=== PATIENT | female | born 1935 | race Caucasian/White ===

== ENCOUNTER 2021-07-07 11:35 | Day surgery (SDC) | payer OTHER ==
[2021-07-07] MEDS ORDERED: CEFAZOLIN/NS 1gm 1 GM/50 ML BAG ONE (11:44)
[2021-07-07] MEDS ORDERED: Ringers Lactate 1,000 ML IV ONE (11:44)
[2021-07-07] MEDS ORDERED: LIDOCAINE 1% MPF 2 ML AMPULE ONE ×2 (13:32→16:07)
[2021-07-07] MEDS ORDERED: MIDAZOLAM HCL 2 MG/2 ML INJ ONE (13:32)
[2021-07-07] MEDS ORDERED: propofoL 200 MG/20 ML VIAL IV ONE ×2 (13:32→16:03)
[2021-07-07] MEDS ORDERED: FENTANYL CITR 100 MCG/2 ML ONE (13:32)
[2021-07-07] MEDS ORDERED: ROCURONIUM 50 MG/5 ML VIAL IV ONE (13:38)
[2021-07-07] MEDS: LIDOCAINE 1% W/EPI 1:100,000 MDV 20 ML VIAL ONE ×2 (14:17→14:40)
[2021-07-07] MEDS ORDERED: KETOROLAC 30 MG/ML INJ ONE (14:39)
[2021-07-07] MEDS ORDERED: ONDANSETRON 4 MG/2 ML VIAL ONE (14:49)
--- NOTE | 2021-07-07 14:56 | P.BOP ---
Preoperative diagnosis: labial adhesions, clitoral rojas adhesions Postoperative diagnosis: same Primary procedure: Lysis of labial adhesions and clitoral rojas adhesions Secondary procedure: bilateral labioplasty Philosophy Faculty: NONE,NONE Estimated blood loss: min Specimen: none Findings: labia majora, minora, clitoral rojas adhesions Anesthesia: MAC Complications: None Transferred to: Recovery Room Condition: Good
[2021-07-07 16:09] VITALS: BP 137/67; TEMP 98.1; O2SAT 100
[2021-07-07] MEDS ORDERED: HOME MED 1 EA UNK (Estradiol [Estradiol] 42.5 GM Cream.Appl) TOP SCH (17:00)
[2021-07-07] MEDS ORDERED: HOME MED 1 EA UNK (Acetaminophen [Tylenol Arthritis] 650 MG Tablet.Er) PO SCH (21:00)
[2021-07-07] MEDS ORDERED: AMLODIPINE 5 MG TAB PO SCH (21:00)
== END 2021-07-07 15:40 | disposition home or self-care (01) ==
LOC: OR 11:35
PROVIDERS: ATTEND Obstetrics & Gynecology
PROC: 0UBMXZZ Excision of Vulva, External Approach (ICD-10-PCS; 2021-07-07)
PROC: 0UNMXZZ Release Vulva, External Approach (ICD-10-PCS; principal; 2021-07-07 12:30)
DX: Q52.5 Fusion of labia (principal); N90.89 Other specified noninflammatory disorders of vulva and perineum; Z20.822 Contact with and (suspected) exposure to COVID-19
CPT/HCPCS: 56441; 56620; U0003; J2704 ×2; J0690; J7120; J2405; J2250; J3010

== ENCOUNTER 2024-02-26 09:26 | Emergency (ER) | payer OTHER ==
--- OUTSIDE RECORDS SUMMARY | 2024-02-26 09:28 | XMS REPORT | Continuity of Care Document ---
Author Name Unknown Address [address] [place] [address] [address] thconnect Address 1200 [facility] 1 495 [place] [address] Care Team Providers Care Academic Coach Name Role Phone [email or web address]_S Attending Clinician Unavaila ble [email or web address]_Kadiyala_S Admitting Clinician Unavaila ble Payers Payer Name Policy Type Policy Number Effective Date Expirati on Date Source MEDICARE [place]: [employer] [id number] 2000 00:00:00 MOHAN PARKER REMI (MEDICARE SUPPLEMENT) [id number] 2019 00:00:00 Encounters Start Date/Time End Date/Time Encounter Type Admission Type Attending Clinicians Care Facility Care Department Encounter ID Source 2021-12-29 15:09:04 Outpatient [facility] [id number] [facility] 2021-12-26 09:07:02 Outpatient [facility] [id number] [facility] 2021-12-25 14:19:02 Outpatient [facility] [id number] [facility] 2023-05-19 00:00:00 2023-05-19 00:00:00 Outpatient GC_GCBZW_Ka diyala_S PRIV PRIV [id number] [facility] 2023-05-18 00:00:00 2023-05-18 00:00:00 Outpatient [email or web address] diyala_S PRIV PRIV [id number] [facility]
--- NOTE | 2024-02-26 10:33 | RAD REPORT ---
EXAM DESCRIPTION: RAD - Hip Right 2 View - 02/26/2024 10:24 am CLINICAL HISTORY: PAIN COMPARISON: Head C Spine Mpr Wo Con dated 02/26/2024 FINDINGS: Diffuse osteopenia is seen. There is high suspicion of a impaction fracture present at the junction of the right femoral head and neck. No dislocation.
--- NOTE | 2024-02-26 10:34 | RAD REPORT ---
EXAM DESCRIPTION: RAD - Knee Right 3 View - 02/26/2024 10:24 am CLINICAL HISTORY: PAIN COMPARISON: No comparisons FINDINGS: Diffuse osteopenia is seen. Mild tricompartmental osteoarthritis. No fracture, dislocation seen. Small joint effusion.
--- NOTE | 2024-02-26 10:39 | RAD REPORT ---
EXAM DESCRIPTION: RAD - Elbow Right 3 View - 02/26/2024 10:24 am CLINICAL HISTORY: PAIN COMPARISON: No comparisons FINDINGS: Diffuse osteopenia is seen. The proximal aspect of the radius appears dislocated and is in abnormal position. No gross fracture.
--- NOTE | 2024-02-26 10:48 | RAD REPORT ---
EXAM DESCRIPTION: CT - CTHCSPWOC - 02/26/2024 10:24 am CLINICAL HISTORY: Trauma, head and neck injury. TRAUMA COMPARISON: No comparisons TECHNIQUE: Axial 5 mm thick images of the head were obtained. Axial 2 mm thick images of the cervical spine were obtained with sagittal and coronal reconstruction images generated and reviewed. All CT scans are performed using dose optimization technique as appropriate and may include automated exposure control or mA/KV adjustment according to patient size. FINDINGS: CT HEAD WITHOUT CONTRAST: No acute hemorrhage, hydrocephalus or extra-axial collection is identified.Moderate generalized brain atrophy is present with moderate periventricular and deep white matter chronic microvascular ischemi c changes.Large area of gliosis is seen involving the posterior fossa with postsurgical changes prese nt. The paranasal sinuses and mastoids are clear. CT CERVICAL SPINE WITHOUT CONTRAST: No fracture or subluxation.Mild mid and lower cervical degenerative changes.No prevertebral soft tiss ues swelling is identified. IMPRESSION: No acute intracranial or cervical spine findings.
--- NOTE | 2024-02-26 12:02 | RAD REPORT ---
EXAM DESCRIPTION: CT - Pelvis Wo Cont - 02/26/2024 11:42 am CLINICAL HISTORY: TRAUMA COMPARISON: No comparisons TECHNIQUE: All CT scans are performed using dose optimization technique as appropriate and may inclu de automated exposure control or mA/KV adjustment according to patient size. FINDINGS: Advanced diffuse osteopenia. There is a mildly impacted fracture seen of the proximal right femur involving the right femoral head / neck junction as well as the subcapital region. No dislocation seen. Left hip appears intact. Sacroiliac joints appear intact. IMPRESSION: Fracture of the proximal right femur as detailed.
--- NOTE | 2024-02-26 13:07 | ER ---
Nurse's Notes [facility] Name: Eryn Miguel Age: 88 yrs Sex: Female : 1935 Arrival Date: 02/26/2024 Time: 09:26 Bed 17 Private MD: Diagnosis: Abrasion of scalp;Mechanical fall;Right femoral neck fracture Presentation: 02/25 09:39 Chief complaint: EMS states: Lost her balance while taking out the trash and fell on rs5 her right side. Lac noted to right side of head, no active bleeding noted. Complains of pain to right leg and right side of head. Pt does not remember fall. Daughter reports positive LOC, is not on blood thinners. Coronavirus screen: At this time, the client does not indicate any symptoms associated with coronavirus-19. Ebola Screen: No symptoms or risks identified at this time. Initial Sepsis Screen: Does the patient meet any 2 criteria? No. Patient's initial sepsis screen is negative. Does the patient have a suspected source of infection? No. Patient's initial sepsis screen is negative. Risk Assessment: Do you want to hurt yourself or someone else? Patient reports no desire to harm self or others. 09:39 Method Of Arrival: EMS: [facility] rs5 09:41 Onset of symptoms was February 26, 2024. Care prior to arrival: Medication(s) given: 25 rs5 mcg fentanyl IV initiated. 20 GA, in the left forearm. 09:41 Acuity: B[place] 3 rs5 Historical: - Allergies: 09:42 No Known Allergies; rs5 - PMHx: 09:42 Hypertensive disorder; Arthritis; Osteoporosis; rs5 - PSHx: 09:42 left knee surgery; rs5 - Immunization history:: Adult Immunizations up to date. - Infectious Disease History:: Denies. - Social history:: Smoking status: Patient denies any tobacco usage or history of. - Family history:: not pertinent. Screenin:34 [facility] ED Fall Risk Assessment (Adult) History of falling in the last 3 months, rs5 including since admission Yes- single mechanical fall (1 pt) Confusion or Disorientation No (0 pts) Intoxicated or Sedated No (0 pts) Impaired Gait Yes (1 pt) Mobility Assist Device Used Yes (1 pt) Altered Elimination No (0 pt) Score/Fall Risk Level 3 or more points = High Risk Oriented to surroundings, Maintained a safe environment. Abuse screen: Denies threats or abuse. Nutritional screening: No deficits noted. Tuberculosis screening: No symptoms or risk factors identified. Assessment: 09:34 General: Appears in no apparent distress. uncomfortable, Behavior is calm, cooperative. rs5 Pain: Complains of pain in right upper leg, and right side of head Pain currently is 3 out of 10 on a pain scale. Quality of pain is described as aching, Is continuous. Neuro: Level of Consciousness is awake, alert, obeys commands, Oriented to person, place, time, situation. Cardiovascular: Patient's skin is warm and dry. Respiratory: Airway is patent Respiratory effort is even, unlabored, Respiratory pattern is regular, symmetrical. GI: Abdomen is round non-distended, Abd is soft and non tender X 4 quads. : No signs and/or symptoms were reported regarding the genitourinary system. EENT: No signs and/or symptoms were reported regarding the EENT system. Derm: Skin is intact, Skin is pink, warm \T\ dry. 0.5 inch laceration noted to right side of head, no active bleeding noted. Pt denies dizziness or blurred vision at this moment. Musculoskeletal: Range of motion: limited in right leg. 10:28 Reassessment: Patient and/or family updated on plan of care and expected duration. Pain rs5 level reassessed. Patient is alert, oriented x 3, equal unlabored respirations, skin warm/dry/pink. 10:47 Reassessment: Patient appears in no apparent distress at this time. Patient and/or kj2 family updated on plan of care and expected duration. Pain level reassessed. Patient is alert, oriented x 3, equal unlabored respirations, skin warm/dry/pink. Patient states symptoms have improved. 10:48 Reassessment: RN cleansed laceration and applied 2x2 with bandaid. kj2 13:26 General: Report given to ADELA Kaiser at [facility] in the [facility]. . me1 Vital Signs: 09:39 BP 151 / 69; Pulse 70; Resp 17; Temp 97.8(O); Pulse Ox 98% on R/A; rs5 10:42 BP 151 / 63; Pulse 73; Resp 18; Temp 98.1(O); Pulse Ox 98% on R/A; kj2 12:02 BP 141 / 60; Resp 18; Pulse Ox 96% ; kj2 13:00 BP 130 / 65; Pulse 77; Resp 16; Pulse Ox 97% on R/A; me1 13:07 Weight 39.01 kg (M); aa5 ED Course: 09:33 Patient arrived in ED. aa5 09:33 Carlito Cooley MD is Attending Physician. rt 09:34 Patient has correct armband on for positive identification. Placed in gown. Bed in low rs5 position. Call light in reach. Side rails up X2. 09:34 No provider procedures requiring assistance completed. rs5 09:39 Lex Sampson, ADELA is Primary Nurse. rs5 09:42 Triage completed. rs5 10:25 Knee Right 3 View XRAY In Process Unspecified. EDMS 10:25 Hip Right 2 View XRAY In Process Unspecified. EDMS 10:25 Elbow Right 3 View XRAY In Process Unspecified. EDMS 10:26 CT Head C Spine In Process Unspecified. EDMS 10:44 Report received from ADELA Burnett. kj2 10:48 Provided Education on: call light, fall precautions. kj2 11:44 CT Pelvis wo Cont In Process Unspecified. EDMS 12:00 Maintain EMS IV. Dressing intact. Good blood return noted. Site clean \T\ dry. Gauge \T\ me 1 site: 20g LFA. 12:01 bedpan to urinate. kj2 12:10 attempted to initiate a transfer with the [facility] [place]/ placed on automatic eb hold for 50 minutes. 13:02 initiated a transfer with Al[facility] from the [facility] [place]. eb 13:09 administrative approval given by Mell Zhang Rn/ patient has been accepted to [facility] ED/ Dr. Jose M Niño has accepted the patient in transfer without consultation with Dr. Cooley/ report to be called to [phone]. 13:17 Report given to ADELA Cortes. kj2 14:05 Patient transferred, IV remains in place. rs5 Administered Medications: 13:14 Drug: morphine IVP or IV 2 mg IVP once over 4 mins Route: IVP; Infused Over: 4 mins; me1 Site: left forearm; 13:22 Follow up: Response: No adverse reaction; Pain is decreased me1 Medication: 11:12 VIS not applicable for this client. kj2 Outcome: 13:06 ER care complete, transfer ordered by . rt 14:05 Transferred rs5 14:05 Condition: stable rs5 14:05 Instructed on the need for transfer, Demonstrated understanding of instructions, 14:09 Patient left the ED. eb Signatures: Dispatcher [employer] EDAngelia Carlton RN RN aa5 Kate Sanderson Ryan, MD MD rt Lex Sampson RN RN rs5 Sophia Alford RN RN me1 Karla Gaines RN RN kj2
--- NOTE | 2024-02-26 13:07 | EDPHYS ---
Physician Documentation [facility] Name: Eryn Miguel Age: 88 yrs Sex: Female : 1935 Arrival Date: 02/26/2024 Time: 09:26 Bed 17 Private MD: ED Physician Carlito Cooley HPI: 02/25 10:03 This 88 yrs old Unknown Female presents to ER via EMS with complaints of Fall Injury. rt 10:03 Patient presents to the ED with mechanical fall. Patient did hit her head with loss rt consciousness. She reports of pain to her right leg mostly at her right knee, some to her right hip, states that she has chronic numbness and deformity from to the right arm, states that she has some pain to the elbow but denies other pain. Symptoms are moderate in severity, no other aggravating or alleviating factors.. Historical: - Allergies: 09:42 No Known Allergies; rs5 - PMHx: 09:42 Hypertensive disorder; Arthritis; Osteoporosis; rs5 - PSHx: 09:42 left knee surgery; rs5 - Immunization history:: Adult Immunizations up to date. - Infectious Disease History:: Denies. - Social history:: Smoking status: Patient denies any tobacco usage or history of. - Family history:: not pertinent. ROS: 10:03 Constitutional: Negative for fever, chills, and weight loss, Cardiovascular: Negative rt for chest pain, palpitations, and edema, Respiratory: Negative for shortness of breath, cough, wheezing, and pleuritic chest pain, Abdomen/GI: Negative for abdominal pain, nausea, vomiting, diarrhea, and constipation, 10:03 MS/extremity: Positive for pain, Negative for deformity, 10:03 Skin: Positive for abrasion(s), 10:03 Neuro: Positive for headache, loss of consciousness, Exam: 10:03 Constitutional: This is a well developed, well nourished patient who is awake, alert, rt and in no acute distress. Chest/axilla: Normal chest wall appearance and motion. Nontender with no deformity. No lesions are appreciated. Cardiovascular: Regular rate and rhythm with a normal S1 and S2. No gallops, murmurs, or rubs. Normal PMI, no JVD. No pulse deficits. Respiratory: Lungs have equal breath sounds bilaterally, clear to auscultation and percussion. No rales, rhonchi or wheezes noted. No increased work of breathing, no retractions or nasal flaring. Abdomen/GI: Soft, non-tender, with normal bowel sounds. No distension or tympany. No guarding or rebound. No evidence of tenderness throughout. 10:03 Head/face: Abrasion with minimal ooze to the right mormon, right parietal region, contusions noted, no deformity. 10:03 Musculoskeletal/extremity: Chronic appearing deformity to the right arm, minimal tenderness to the elbow, full range of motion, no contusions noted, mild tenderness of the right knee without swelling, deformity, mild tenderness of right hip. Vital Signs: 09:39 BP 151 / 69; Pulse 70; Resp 17; Temp 97.8(O); Pulse Ox 98% on R/A; rs5 10:42 BP 151 / 63; Pulse 73; Resp 18; Temp 98.1(O); Pulse Ox 98% on R/A; kj2 12:02 BP 141 / 60; Resp 18; Pulse Ox 96% ; kj2 13:00 BP 130 / 65; Pulse 77; Resp 16; Pulse Ox 97% on R/A; me1 13:07 Weight 39.01 kg (M); aa5 Laceration: 14:08 Wound Repair of 0.5cm ( 0.2in ) subcutaneous laceration to right mormon. Linear rt shaped.. Distal neuro/vascular/tendon intact. Wound prep: Simple cleansing by nurse. Skin closed with 1-0 Dermabond using Dermabond. Patient tolerated well. MDM: 09:33 Patient medically screened. rt 13:07 Differential diagnosis: Fracture, closed head injury. Data reviewed: vital signs, rt nurses notes, radiologic studies. Consideration of Admission/Observation Patient requires transfer for Ortho. Management of patient was discussed with the following: Primary Care Provider: Discussed with patient's PCP. I considered the following discharge prescriptions or medication management in the emergency department Medications were administered in the Emergency Department. See MAR. Independent interpretation of the following test(s) in the Emergency Department X-Ray: My interpretation is Femoral neck fracture seen on interpretation of x-ray images. Test considered but Not performed: EKG: Denies syncopal symptoms, EKG, blood work not indicated. Care significantly affected by the following chronic conditions: Hypertension. Counseling: I had a detailed discussion with the patient and/or guardian regarding the historical points, exam findings, and any diagnostic results supporting the discharge/admit diagnosis, radiology results, the need to transfer to another facility. Response to treatment: There is no appreciated change of the patient's symptoms at this time. 02/25 09:38 Order name: Knee Right 3 View XRAY; Complete Time: 10:49 rt 02/25 09:38 Order name: Hip Right 2 View XRAY; Complete Time: 10:49 rt 02/25 09:38 Order name: Elbow Right 3 View XRAY; Complete Time: 10:49 rt 02/25 09:38 Order name: CT Head C Spine; Complete Time: 10:49 rt 02/25 11:17 Order name: CT Pelvis wo Cont; Complete Time: 12:02 rt 02/25 13:25 Order name: Dermabond; Complete Time: 13:36 rt Administered Medications: 13:14 Drug: morphine IVP or IV 2 mg IVP once over 4 mins Route: IVP; Infused Over: 4 mins; me1 Site: left forearm; 13:22 Follow up: Response: No adverse reaction; Pain is decreased me1 Disposition Summary: 02/26/24 13:06 Transfer Ordered Notes: Transfer Location: [facility] rt Reason: Specialty rt Condition: Stable rt Problem: new rt Symptoms: are unchanged rt Accepting Physician: (02/26/24 14:09) hilario Diagnosis - Abrasion of scalp rt - Mechanical fall rt - Right femoral neck fracture rt Forms: - Medication Reconciliation Form rt - SBAR form rt Signatures: Dispatcher [employer] Kate Mccracken Ryan, MD MD rt Lex Sampson, RN RN rs5 Sophia Alford RN RN me1 Corrections: (The following items were deleted from the chart) 14: 13:06 Dr. rt rich
[2024-02-26] MEDS ORDERED: MORPHINE 2 MG/ML SYR ONE (13:10)
[2024-02-26] MEDS ORDERED: DERMABOND SKIN ADHESIVE TOP ONE (13:35)
[2024-02-26 14:23] VITALS: TEMP 98.1
[2024-02-26 14:25] VITALS: BP 130/65; O2SAT 97
== END 2024-02-26 14:09 | disposition short-term general hospital (02) ==
LOC: ER 09:26
PROC: 0HQ0XZZ Repair Scalp Skin, External Approach (ICD-10-PCS; principal; 2024-02-26)
DX: S01.01XA Laceration without foreign body of scalp, initial encounter (principal); S72.001A Fracture of unspecified part of neck of right femur, initial encounter for closed fracture; W18.30XA Fall on same level, unspecified, initial encounter
CPT/HCPCS: 12001; 70450; 72125; 72192; 73502; 73080; 73562; 96374; 99285; J2270

== ENCOUNTER 2024-03-03 12:50 | Inpatient (IN) | payer OTHER ==
--- OUTSIDE RECORDS SUMMARY | 2024-03-03 22:05 | XMS REPORT | Continuity of Care Document ---
Author Name Unknown Address [address] [facility] [facility] [place] [id number] [facility] thconnect Address [address] 1 [address] [place] [address] Care Team Providers Care Primary Montessori Teacher Name Role Phone RAMONITA FORMAN Attending Clinician Unava ilable [email or web address]_Kadiyala_S Attending Clinician Unavaila ble RAMONITA FORMAN Admitting Clinician Unava ilable [email or web address]_Kadiyala_S Admitting Clinician Unavaila ble Payers Payer Name Policy Type Policy Number Effective Date Expirati on Date Source MEDICARE [place]: [employer] [id number] 2000 00:00:00 MOHAN KEITH KHALIL (MEDICARE SUPPLEMENT) [id number] 2019 00:00:00 Encounters Start Date/Time End Date/Time Encounter Type Admission Type Attending Clinicians Care Facility Care Department Encounter ID Source 2021-12-29 15:09:04 Outpatient [facility] [id number] [facility] 2021-12-26 09:07:02 Outpatient [facility] [id number] [facility] 2021-12-25 14:19:02 Outpatient [facility] [id number] [facility] 2024-02-26 19:31:00 2024-03-03 20:45:00 Inpatient [facility]DON[facility] [id number] [address] [place] [address] 2023-05-19 00:00:00 2023-05-19 00:00:00 Outpatient GC_GCBZW_Ka diyala_S PRIV PRIV [id number] [facility] 2023-05-18 00:00:00 2023-05-18 00:00:00 Outpatient [email or web address]_Ka diyala_S PRIV PRIV [id number] [facility]
[2024-03-03] MEDS: HEPARIN 5000 UNIT/ML 1 ML VIAL SQ ONE (23:00)
[2024-03-03 23:46] VITALS: BMI 16.0
[2024-03-04 06:23] LABS: Specific Gravity 1.008 (1.005-1.030); Sqamous Epithelial None Seen /HPF (None Seen); Urine Bacteria None Seen /HPF (<20); Urine Bilirubin NEGATIVE (Negative); Urine Blood Negative (Negative); Urine Clarity Extremely Turbid (Clear); Urine Color Colorless (Yellow); Urine Culture Reflex Order NOT NEEDED; Urine Glucose NEGATIVE (Negative); Urine Ketones NEGATIVE (Negative); Urine Micro Reflex YN NO BILL MICROSCOPIC; Urine Nitrite NEGATIVE (Negative); Urine Protein NEGATIVE (Negative); Urine RBC None Seen /HPF (None Seen); Urine Urobilinogen Normal (Normal); Urine WBC None Seen /HPF (<5)
[2024-03-04 07:16] LABS: Absolute Eosinophils 0.1 K/uL (0-0.5); Absolute Monocytes 0.8 K/uL (0.1-1.3); Absolute Neutrophil 3.7 K/uL (1.8-8.0); Basophils % 0.8 % (0-1.3); Eosinophils % 2.2 % (0-4.4); Hematocrit 25.2 % (36.0-45.0); Hemoglobin 8.5 g/dL (12.0-15.0); Lymphocytes % 17.6 % (15.3-44.8); MCH 31.2 pg (27.0-35.0); MCHC 33.9 g/dL (32.0-36.0); MCV 92.2 fL (80-100); Monocytes % 14.3 % (3.3-12.3); Neutrophils % 65.1 % (41.7-73.7); Nucleated Red Blood Cells % 0.1 % (0-0); Platelets 348 thou/uL (152-406); RBC Red Blood Cell Count 2.74 M/uL (3.86-4.86); Red Cell Distribution Width 11.8 % (12.1-15.2)
[2024-03-04 07:37] LABS: Albumin 2.4 g/dL (3.4-5.0); Anion Gap 7.3 mEq/L (5.0-15.0); Magnesium 1.9 mg/dL (1.6-2.4); Potassium 4.3 mEq/L (3.5-5.1); Prealbumin 13.4 mg/dL (20-40)
[2024-03-04] MEDS: POLYETHYL GLY 3350 17 GM/DOSE PO SCH (08:20)
[2024-03-04] MEDS: VITAMIN D 1000 UNIT TAB PO SCH (08:21)
[2024-03-04] MEDS: AMLODIPINE 5 MG TAB PO SCH (08:21)
[2024-03-04] MEDS: CALCIUM CARBONATE 500 MG TAB PO SCH (08:21)
[2024-03-04] MEDS: HEPARIN 5000 UNIT/ML 1 ML VIAL SQ SCH (08:22)
[2024-03-04] MEDS: DOCUSATE NA 100 MG CAP PO SCH (08:22)
[2024-03-04] MEDS: ACETAMINOPHEN 500 MG TAB PO PRN (09:30)
[2024-03-04] MEDS ORDERED: LIDOCAINE 4% PATCH ONE (09:32)
[2024-03-04] MEDS: LIDOCAINE 4% PATCH TOP SCH (09:39)
[2024-03-04] MEDS: APIXABAN 2.5 MG TABLET PO SCH (19:31)
[2024-03-04] MEDS: GABAPENTIN 100 MG CAP PO SCH (19:32)
[2024-03-04] MEDS: ENSURE HIGH PROTEIN 237 ML CAN PO SCH (19:33)
[2024-03-04] MEDS: SENOSIDES 8.6 MG TAB PO SCH (19:33)
--- NOTE | 2024-03-04 21:30 | HP ---
Date of Admission: 03/03/2024 Time Of Service: 1 p.m. Chief Complaint: "I fell and broke my right hip." History Of Present Illness: Ms. 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 At her baseline, she is able to ambulate with a andre-walker or a 4-p femi cane up to about 2 blocks before needing to stop. She fell while throwing trash in her trash ca n where she stepped on the base to open up the trash can on February 26. She hit her right side and her head. She says she does not recall full details and likely passed out briefly. The patient, who wa s with her daughter at that time, noted she had brief loss of consciousness. Emergency Medical Servi ce was summoned, she was brought to the emergency department where imaging showed a right femoral nec k fracture. Orthopedic service was seen and she was taken to the operating room for cephalomedullary nailing of the right femur. Following surgery, she was put at a weightbearing as tolerated status. She was evaluated by therapy and found to require maximal assistance for all functional mobility, un able to ambulate and to perform squat pivot transfer. She required maximum assistance for sitting on the side of the bed. She was very motivated to improve and return back to her prior level of functi oning. She did have acute blood loss requiring monitoring for possible transfusion. In addition, ma lnutrition with low prealbumin, hypertension, needing the antihypertensive medications monitored and potentially adjusted including amlodipine and urinary retention, where she had 2 voiding trials that were failed and a Soto catheter was placed. She, of course, requires ongoing bladder training as sh e denies any issues of urination prior to the fall and fracture. She had a slightly low hemoglobin o f 8.7, hematocrit 27.3, red blood cells 2.86, and sodium slightly low at 132, and glucose 108. As a result of her fall, fracture, and comorbid conditions, she is determined to be appropriate candidate for acute inpatient rehabilitation as she would not likely do well if she were to go to a skilled jad sing facility or discharge home. This will facilitate her return to her prior level of functioning a nd to help avoid rehospitalization. Past Medical History: As noted above. Surgical History: She has intracerebral hemorrhage 30 years ago, had surgery for that; in addition a lso has hypertension, osteoporosis, urinary retention, urinary tract infection. Allergies: NO KNOWN DRUG ALLERGIES. Medications: Tylenol 500 mg every 4 hours as needed, Norvasc 7.5 mg daily, Eliquis 2.5 mg twice scott y, Os-Curt plus D 500 mg twice daily, vitamin D 1000 units daily, Colace 100 mg twice daily, lidocaine patch apply topically daily to the right lateral hip surgical site, Ensure high protein 237 mL twice daily, Senokot 17.2 mg at bedtime. Laboratory Studies: White blood cell count 5.7, hemoglobin currently 8.5, platelets 348. Sodium 131 , potassium 4.3, chloride 97, carbon dioxide 31, BUN 19, creatinine 0.49, glucose 114, calcium 9.6, m agnesium 1.9, albumin 2.4, prealbumin 13.4. Urinalysis, extreme turbidity, pH 8, 2+ amorphous kylah ls. X-ray/imaging: MRI of the spine shows some motion degraded exam, multiple nonenhancing cystic lesion s demonstrating faked rim enhancement to the right aspect of the cervical spine from C4 to T1. 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 Cyst ic schwannoma felt to be less likely given the multiplicity. There is chronic compressive fracture o f T6 involving 80% vertebral body height resulting in mild anterior gibbus deformity of the spine at this level. There is multilevel degenerative changes of the cervical, thoracic and lumbar spine as d escribed without significant canal stenosis or abnormal cord signal. There is a prior suboccipital c raniotomy from cerebral hemorrhage. There is a small T2 hyperintense lesion in the kidneys, __ characterized on the MRI. The imaging of the chest did show a left thyroid nodule noted on non-em ergent ultrasound. There was a 2.6 x 1.9 x 2.3, soft tissue mass at C7 to T1 in the neuroforaminal, which chronically remodeled the foramina, mild displacement of the adjacent thecal sac, recommended f urther imaging. Left thyroid nodule recommended non-emergent imaging. Family History: Noncontributory. The patient lives with daughter. Denies alcohol, tobacco, or IV d rug use. Review of Systems: Some mild myalgias, arthralgias, pain up to 6/10 when she tries to mobilize, but 0/10 while lying in bed; otherwise, she has no fevers or chills. Again, mild myalgias, arthralgias. No rash, no headach e. No psychiatric complaints. She does have the urinary retention. No issues of stools, stools are normal. Current Level Of Functioning: Eating, setup assistance; oral hygiene is supervision; toileting, maxi mum assistance; upper body dressing, moderate assistance; lower body dressing, maximum assistance; do nning and doffing of footwear, maximum assistance; rolling left to right and right to left, moderate assistance; sit to lying and lying to sitting on side of bed, moderate assistance; sit to stand, maxi mum assistance. Transfer from bed to chair to toilet, maximal assistance. Ambulation, she will walk with a andre-walker to begin to ambulate, not yet ambulated. Physical Examination: Vital Signs: Blood pressure 128/60, pulse 88, respiratory rate 16, temperature 97, oxygen saturation 93%, weight 88 pounds, height 5 feet 2 inches, BMI 16.1. General: Ms. Miguel is resting comfortably in bed. She does appear somewhat emaciated and thin, scaph oid abdomen and scalloping in the temporal areas. HEENT: She is normocephalic, atraumatic. Sclerae are anicteric. Oropharynx pink, moist. Neck: Supple. Chest: Clear. Heart: Regular. Extremities: No significant edema, cyanosis, or clubbing noted in the extremities Neurological: She has no focal neurologic deficits. Rehabilitation And Medical Assessment And Plan: Ms. Miguel is an 88-year-old patient admitted to the i atient rehabilitation unit with impairment category 07 orthopedic, lower extremity fracture. [facility]11 status post unilateral hip fracture. Etiologic diagnosis is right femo ral neck fracture. Comorbidities: Decreased mobility, decreased physical functioning, hypertension, urinary tract infection, postoperative anemia, tachycardia, cervical mass, urinary retention. Plan: 1.She will have physical, occupational, and if need be, speech therapy 3.5 hours, 5 of 7 days. 2.For malnutrition, the Ensure High protein twice daily. 3.For pain, gabapentin 100 mg twice daily, Tylenol is on board, and tramadol as needed. 4.For stool softening, Senokot at bedtime, lidocaine patch added for pain. Vitamin D and calcium for the sitting of bone, Eliquis 2.5 mg twice daily for DVT prophylaxis, Norvasc 7.5 mg scott y for hypertension. We will hold if systolic blood pressure is less than 120. Comorbidities That Are Impacting Rehabilitation: Currently, she is significantly underweight with a very low BMI and will therefore continue with high-protein to help her with healing. In addition, th ere may be some issues of impulsivity potentially that may have led to the fall. We will have gait b elt at all times, rolling walker with all mobilization transfers and the patient is, of course, encou raged to call the nurse or staff as she begins or needs to transfer, to use the restroom, or do any a ctivity. Potential for urinary tract infection is there. She will have urinalysis signif icant anemia and will have iron supplementation, ferrous sulfate Hemocyte Plus. Rehab Specific Plan: Ms. Miguel will have physical, occupational, and if need be, speech therapy for 3 .5 hours, 5 of 7 days to improve her ability to transfer from bed to chair to toilet, to perform toil eting and showering and to ambulate household distances over 50 feet up to 250 feet with modified ind ependence, to be able to mobilize a wheelchair 250 feet with modified independence up and down 10 lindsay ps with modified independence and perform cognitive functioning independently. Ms. Miguel has a good understanding of the process of admission to inpatient rehabilitation unit and ho w she will benefit from physical, occupational, and if need be speech therapy. She will have 24 hour s a day, 7 days a week skilled rehabilitation nursing, daily physician evaluation and management, and social service evaluation and management for discharge planning. Medications and follow up as beny castillo. She will also have to continue therapy following her discharge and that will be arranged. It is noted that she is also followed by her primary care physician, Dr. Mireles, who will be following her [facility] hospitalization. Barriers To Discharge: Currently, the patient is with her daughter, who will be helpful when she goe s home and she will need to continue therapy. She will need 24-hour supervision likely for a while a t least. Otherwise, significant malnutrition may become an issue with anemia as well. Those are med icated as noted above. Length Of Stay: About 12-14 days. Disposition: Home with family and continuing therapy via Home Health. Prognosis: Good. Rehab Specific Goals: 1.Become independent with upper and lower body dressing, donning and doffing footwear. 2.Independently ambulate 250 feet with modified independence. 3.Independently mobilized wheelchair 250 feet with modified independence. Again, she will use a wal ker when ambulating. 4.Independently go up and down 10 steps with bilateral handrails. 5.Independently perform cognitive functioning. The above goals were reviewed with Ms. Miguel and she is in agreement. By signing this document, I acknowledge I personally performed a full physical examination on Ms. Gabino kramer no later than 24 hours after admission to the inpatient rehabilitation facility and determine if brittney ocampo is able to tolerate the above course of treatment at an intensive level for a reasonable period of time. A detailed individualized plan of care for her will be completed by hospital day 4 based on e preadmission screen, history and physical, and therapy evaluations. LIONEL Voice ID: [id number]
[2024-03-05] MEDS ORDERED: POLYETHYL GLY 3350 17 GM/DOSE PO PRN (06:11)
[2024-03-05] MEDS: TRAMADOL HCL 50 MG TAB PO PRN (09:26)
[2024-03-05] MEDS: CRANBERRY FRUIT EXTRACT 200 MG CAP PO SCH (19:59)
[2024-03-05] MEDS: MELATONIN 3 MG TABLET PO PRN (20:00)
[2024-03-06 05:03] LABS: Absolute Basophils 0.1 K/uL (0-0.5); Absolute Eosinophils 0.2 K/uL (0-0.5); Absolute Lymphocytes (CBC) 2.1 K/uL (0.7-4.9); Absolute Monocytes 1.1 K/uL (0.1-1.3); Absolute Neutrophil 6.1 K/uL (1.8-8.0); Basophils % 0.9 % (0-1.3); Eosinophils % 2.3 % (0-4.4); Hemoglobin 8.5 g/dL (12.0-15.0); Lymphocytes % 21.8 % (15.3-44.8); MCH 31.4 pg (27.0-35.0); MCHC 33.9 g/dL (32.0-36.0); MCV 92.6 fL (80-100); MPV 6.8 fL (7.6-11.3); Monocytes % 11.4 % (3.3-12.3); Neutrophils % 63.6 % (41.7-73.7); Nucleated Red Blood Cells % 0.1 % (0-0); Platelets 439 thou/uL (152-406); RBC Red Blood Cell Count 2.71 M/uL (3.86-4.86); Red Cell Distribution Width 11.9 % (12.1-15.2)
[2024-03-06 05:16] LABS: Albumin 2.4 g/dL (3.4-5.0); Anion Gap 8.1 mEq/L (5.0-15.0); Magnesium 1.9 mg/dL (1.6-2.4); Potassium 4.1 mEq/L (3.5-5.1); Prealbumin 14.9 mg/dL (20-40)
--- NOTE | 2024-03-06 06:23 | PN ---
Date of Progress Note: 03/05/2024 Subjective: The patient was seen this morning for followup. She was lying in bed, not in any distre ss. Denies any complaints. Her daughter was with her at bedside. Objective: Vital Signs: Reviewed. HEENT: Unremarkable. Lungs: Clear to auscultation. Cardiac: Heart sounds normal. Abdomen: Soft. Bowel sounds normal. No guarding, rigidity, tenderness, distention. Extremities: No leg edema. Impression: 1.Right hip fracture. 2.Anemia. 3.Urinary retention. 4.Hypertension. Plan: We will go ahead and continue current medication. Continue Eliquis. Continue Tylenol, but th is morning Tylenol was not helping. So, we will add tramadol for moderate pain. We will continue cu rrent antihypertensive medication and continue bladder training program. I will see her tomorrow for followup. HARRIETT/MODL Voice ID: [id number] Report ID: [id number]
--- NOTE | 2024-03-06 06:47 | HP ---
Date of Admission: 03/03/2024 Chief Complaint: Hip fracture. History Of Present Illness: This is an 88-year-old female patient who had fallen down at home and wa s brought to our emergency room and was found to have impacted right hip fracture. After the patient was evaluated in our emergency room, she was transferred to [place] as we did not have any orthopedi c surgeon available. The patient had surgery done for her right hip fracture, and after surgery, she remained medically stable. She was brought to our inpatient rehab for physical therapy. When I saw her, daughter was present with her at bedside. The patient denies any chest pain, shortness of priscilla th, nausea, vomiting. She had some urinary retention after surgery and Soto catheter was placed and about 600 to 700 cc of urine was obtained and her Soto catheter was removed after some time and she had recurrence of urinary retention and Soto catheter was replaced, and currently, she still has th e Soto catheter for that reason. Medications: Current medication list reviewed, but on outpatient, she was taking Tylenol 650 mg 2 ti mes a day; amlodipine 5 mg, was taking 1-1/2 tablets, so total dose 7.5 mg daily; vitamin D3 1000 uni ts daily; multivitamin daily. Review of Systems: Musculoskeletal: As mentioned above. All other systems reviewed and negative. Past Surgical History: Surgery for cerebral AV malformation, which caused bleeding and had surgery f or that in 1993; tonsillectomy; knee surgery; and surgery for skin cancer. Family History: Father , had diabetes. Mother , details unknown. Sister has diabetes. Social History: Negative for smoking or alcohol use. Past Medical History: Significant for hypertension, hyperlipidemia, kyphosis, scoliosis, and osteoar thritis. Physical Examination: Vital Signs: Height 4 feet inches, weight pounds, temperature , puls e , respiratory rate , . General: Awake, alert, oriented, not in distress. HEENT: Head atraumatic, normocephalic. Conjunctivae nonerythematous. Sclerae white. Mouth, no thr ush or edema noted. Ears/Nose, no mass, lesion, discharge noted. Neck: Supple. No JVD, lymph nodes, bruit, thyromegaly noted. Lungs: Bilateral good equal air entry. Clear to auscultation. No rhonchi. No rales. Heart: Normal heart sounds, no murmur or gallop. Abdomen: Soft, bowel sounds normal. No guarding, rigidity, tenderness, mass, hepatosplenomegaly, dis tention, or bruit noted. Extremities: Right upper extremity has chronic deformity at the elbow and it is lot smaller than the left upper extremity. Skin: No rash, ulcer, cellulitis. Lymphatics: No lymph node enlargement in neck, supraclavicular, infraclavicular region. Neuro: No focal neurological deficit. Chest: Unremarkable. External Genitalia: Deferred. Rectal: Deferred. Laboratory Data: Urinalysis . WBC , hemoglobin . Potassium _, chloride , bicarb , BUN , creatinine , glucose , albumin, . Impression: 1.Right hip fracture. 2.Hypertension. 3.Anemia due to acute blood loss. 4.Hyperlipidemia. 5.Osteoarthritis, multiple sites. 6.Kyphosis. 7.Scoliosis. 8.Urinary retention. Plan: We will go ahead and admit the patient to hospital for further evaluation and management of th is problem to rehab floor. Consult Dr. Gonzalez from Rehab to manage the patient's therapy and I dorota l continue to follow her for medical management. We will continue current pain medications per order . DVT prophylaxis will be given using Eliquis 2.5 mg 2 times a day. We will continue her antihypert ensive medications for her blood pressure and monitor blood pressure if necessary, adjust medication if necessary, except use of pain medication as per order. Anemia will not require any further interv ention . For her urinary retention, we will keep the Soto catheter in place at this point . Start bladder training program. Hopefully over a period of next few days, we should be able to tr y to remove Soto catheter successfully. Her available records from outside hospital reviewed. Total time spent included 80 minutes reviewing available records from outside hospital, review of torin rgency room record when patient was brought into our hospital for hip fracture, review of last office visit record, and performing today's evaluation and management. HARRIETT/STARLA Voice ID: [id number]
[2024-03-06] MEDS: FERROUS SULFATE 325 MG TAB PO SCH (07:32)
--- NOTE | 2024-03-06 19:59 | PN ---
Date of Progress Note: 03/06/2024 Subjective: The patient was seen this morning for followup. No new complaints or problems reported by the patient. She was lying in bed, sleeping, easily arousable, not in distress. No new complaint s or problems reported by her. Objective: Vital Signs: Reviewed. HEENT: Unremarkable. Lungs: Clear to auscultation. Heart: Sounds normal. Abdomen: Soft. Bowel sounds normal. No guarding, rigidity, tenderness, distention. Extremities: No leg edema. Laboratory Data: White count 9.6, hemoglobin 8.5, platelets 439. Sodium 132, potassium 4.1, chlorid e 98, bicarb 30, BUN 31, creatinine 0.53, glucose 103, albumin 2.4. Impression: 1.Right hip fracture. 2.Anemia due to acute blood loss. 3.Hypertension. 4.Malnutrition. Plan: We will go ahead and continue current blood pressure medication which is amlodipine. Continue current DVT prophylaxis using Eliquis. For anemia, I will start her on iron supplement and for maln utrition, the patient was encouraged to eat her meals and use nutritional support like Ensure per ord er. I will see her tomorrow for followup. HARRIETT/MODL Voice ID: [id number] Report ID: [id number]
[2024-03-06] MEDS: GABAPENTIN 100 MG CAP PO SCH (20:12)
[2024-03-06] MEDS: MELATONIN 3 MG TABLET PO SCH (20:12)
[2024-03-06] MEDS: ENSURE ENLIVE 237 ML CAN PO SCH (20:15)
--- NOTE | 2024-03-06 23:44 | PN ---
Date of Progress Note: 03/06/2024 Time Of Service: 1:15 p.m. Subjective: Ms. Miguel is resting in bed. She is in no acute distress. She said the right hip is not showing much pain at this point, although there is some muscle spasm and some difficulty as she does her exercises. Objective: No fevers or chills. Mild myalgias, arthralgias. No rash. No psychiatric complaints. Physical Examination: Vital Signs: Blood pressure 106/58, pulse 97, respiratory rate 18, temperature 98.1, O2 saturation 9 3%. General: Ms. Miguel is lying in bed in between therapy sessions. HEENT: She is normocephalic, atraumatic. Sclerae anicteric. Oropharynx moist. Neck: Supple. Chest: Clear. Skin: Good hemostasis in the right hip surgical site. Medications: Tylenol 500 mg every 4 hours as needed, Norvasc 7.5 mg daily, Eliquis 2.5 mg twice scott y, Os-Curt plus D 500 mg twice daily along with 1000 units of vitamin D daily, Colace 100 mg twice mehran ly, ferrous sulfate 325 mg daily, gabapentin now increased to 200 mg twice daily as she did have some moderate pain as noted. She has lidocaine patch applied to the left shoulder and right side as well . She has melatonin for insomnia, Ensure Enlive 237 mL twice daily for malnutrition, Senokot ___ g at night for constipation, tramadol 50 mg every 6 hours as needed for pain. Laboratory Studies: White blood cell count 9.6, hemoglobin 8.5, platelets 439. Sodium 132, potassiu m 4.1, chloride 98, carbon dioxide 30, BUN 31, creatinine 0.53, glucose 103. Calcium 9.5, magnesium 1.9. Prealbumin 14.9, albumin 2.4. X-ray/imaging: No new x-rays or imaging. Progress Made With Physical, Occupational, And Speech Therapy: Today, [id number]-[id number] transfers with m aximum assistance. [id number]-yi-goaqx transfers, moderate to maximum assistance. Using the grab bars and toilet, moderate assistance. With her occupational therapy, partial minimum assistance for sit-to-st and transfers. She does have very poor upper body strength. She did have impaired static standing b alance after standing for about 15 seconds and after transferring. With speech, long-term goals are improved short-term memory, executive functioning skills. She did have a goal also to move from maxi mum assistance to moderate assistance to help her to be able to return home. Assessment: Ms. Miguel is an 88-year-old patient in the rehabilitation unit with a right femoral neck fracture after falling and status post surgical repair. She has decreased mobility, decreased physic al functioning, hypertension, untreated urinary tract infection, postoperative anemia, tachycardia, m alnutrition, urinary retention, and cervical mass. Plan: 1.She will continue with physical, occupational, and speech therapy for 3.5 hours, 5 of 7 days. 2.Continue with Ensure High Protein for malnutrition. Continue with gabapentin, which was increased to twice daily for neuropathic pain. Tramadol also on board. Lidocaine patch on board. 3.Eliquis 2.5 mg twice daily for DVT prophylaxis. Norvasc for hypertension. Senokot for constipati on. Melatonin for insomnia. Ferrous sulfate and calcium for osteoporosis risk. Comorbidities That Are Impacting Rehabilitation: She has noted some pain that is still ongoing in e right femoral neck fracture site. Pain medications were adjusted. Narcotics will be used sparingl y. Neuromodulators like gabapentin, those will be adjusted first. LB/MODL Voice ID: [id number] Report ID: [id number]
[2024-03-07] MEDS: GABAPENTIN 300 MG CAP PO SCH (19:39)
--- NOTE | 2024-03-07 21:42 | PN ---
Date of Progress Note: 03/07/2024 Time Of Service: 1:25 p.m. Subjective: Ms. Miguel is resting in bed in between therapy sessions. Denied any significant pain in the right femoral neck fracture, which is surgically addressed and has good hemostasis. Objective: No fevers, chills, nausea, vomiting. No significant myalgias, arthralgias. She has some mild pain at the surgical site. She did rate up to 5/6 and will have pain medications adjusted incl uding gabapentin, but she will go to 300 mg twice daily from 200 mg twice daily. We will try to spar ingly use narcotic medications. Physical Examination: Vital Signs: Blood pressure 119/63, pulse of 88, respiratory rate 18, temperature 97.3, oxygen satur ation 95%. Weight 88 pounds. Height 5 feet 2 inches, BMI 16.1. General: Ms. Miguel is resting in bed. HEENT: She is normocephalic, atraumatic. Sclerae anicteric. Oropharynx is pink and moist. Neck: Supple. Chest: Clear. Extremities: Good hemostasis of the right hip surgical site. Laboratory Studies: No new laboratory studies. X-ray/imaging: No new x-rays or imaging. Medications: Medications have been reviewed and are unchanged. Progress Made With Physical, Occupational, And Speech Therapy: Today, with physical therapy, she was able to do a ruiqes-ye-zjf transfer with moderate assistance, ovt-li-dguys transfer with moderate as sistance to a wheelchair. She did mobilize wheelchair 100 feet with standby assistance and verbal cu es for maneuvering. With her occupational therapy, maximum assistance pulling up and down briefs. F or toileting, minimal assistance for toilet hygiene with harness. Independent oral care and face was rocky. She did mobilize a wheelchair 20 feet and 10 feet backwards and did another 30 feet, but becam e fatigued. With speech, independent recall 1 of 3 unrelated pictures after 3 minutes delay and was able to retrieve the remaining 1 with semantic cuing. She improved her organizational thinking in 7/ 10 opportunities. Ms. Miguel is making fair progress overall with physical, occupational, and speech therapy with require s more time to improve and recover. Assessment: Ms. Miguel is an 88-year-old patient in the rehabilitation unit with a right femoral neck fracture, status post surgical repair. She has significant malnutrition and is very much below weigh t and low BMI. She has decreased mobility, decreased physical functioning, hypertension, urinary tra ct infection, postoperative anemia, tachycardia, and cervical mass. Plan: 1.Continue with physical, occupational, and speech therapy for 3.5 hours, 5 of 7 days. 2.Comorbid conditions are managed by Dr. Mireles, primary care physician. 3.Continue all medications including gabapentin, tramadol, lidocaine, the Eliquis, Norvasc, melatoni n, ferrous sulfate, calcium. Comorbidities That Are Impacting Rehabilitation: Pain medication gabapentin was adjusted to help min imize the pain without increasing narcotics and she is not sleepy while taking gabapentin 200 mg twic e daily. Again, to go up to [address] Mireles is also managing these medications as well . TAQUERIA/STARLA Voice ID: [id number] Report ID: [id number]
--- NOTE | 2024-03-07 21:51 | PN ---
Date of Progress Note: 03/07/2024 Subjective: The patient was seen this morning for followup she was sleeping, lying in bed, not in di stress. Denies any new complaints. Objective: Vital Signs: Reviewed. HEENT: Unremarkable. Lungs: Clear to auscultation. Heart: Sounds normal. Abdomen: Soft. Bowel sounds normal. No guarding, rigidity, tenderness, distention. Extremities: No leg edema. Impression: 1.Right hip fracture. 2.Hypertension. 3.Anemia due to acute blood loss. 4.Urinary retention. Plan: The patient has a Soto catheter. We will continue bladder training program and hopefully we can remove her Soto catheter in near future. We will continue antihypertensive medication. Continu e current pain medication and physical therapy under guidance of Dr. Gonzalez. We will continue iron supplement and patient was encouraged to continue to drink water as suggested. HARRIETT/MODL Voice ID: [id number] Report ID: [id number]
[2024-03-08] MEDS: POLYETHYL GLY 3350 17 GM/DOSE PO PRN (14:13)
[2024-03-08] MEDS: TRAMADOL HCL 50 MG TAB PO PRN (14:13)
--- NOTE | 2024-03-08 20:34 | PN ---
Date of Progress Note: 03/08/2024 Subjective: The patient was seen this morning for followup. No new complaints or problems reported by the patient, lying in bed, not in distress. Objective: Vital Signs: Reviewed. HEENT: Unremarkable. Lungs: Clear to auscultation. Heart: Sounds normal. Abdomen: Soft. Bowel sounds normal. No guarding, rigidity, tenderness, distention. Extremities: No leg edema. Impression: 1.Right hip fracture. 2.Anemia due to acute blood loss. 3.Hypertension. Plan: We will go ahead and continue current medications. Continue current pain medications, antihyp ertensive medication, and iron supplementation. Would do blood work tomorrow morning and continue ph ysical therapy under guidance of Dr. Gonzalez. HARRIETT/MODL Voice ID: [id number] Report ID: [id number]
[2024-03-09 06:10] LABS: Absolute Basophils 0.1 K/uL (0-0.5); Absolute Eosinophils 0.2 K/uL (0-0.5); Absolute Lymphocytes (CBC) 1.7 K/uL (0.7-4.9); Absolute Monocytes 0.9 K/uL (0.1-1.3); Absolute Neutrophil 5.5 K/uL (1.8-8.0); Basophils % 0.8 % (0-1.3); Hematocrit 24.1 % (36.0-45.0); Hemoglobin 8.4 g/dL (12.0-15.0); Lymphocytes % 20.2 % (15.3-44.8); MCH 31.6 pg (27.0-35.0); MCHC 34.8 g/dL (32.0-36.0); MCV 90.8 fL (80-100); MPV 6.4 fL (7.6-11.3); Monocytes % 11.2 % (3.3-12.3); Neutrophils % 65.8 % (41.7-73.7); Nucleated Red Blood Cells % 0.1 % (0-0); Platelets 532 thou/uL (152-406); RBC Red Blood Cell Count 2.66 M/uL (3.86-4.86); Red Cell Distribution Width 11.9 % (12.1-15.2)
[2024-03-09 06:55] LABS: Albumin 2.4 g/dL (3.4-5.0); Anion Gap 8.4 mEq/L (5.0-15.0); Potassium 4.4 mEq/L (3.5-5.1); Prealbumin 14.5 mg/dL (20-40)
[2024-03-09 08:23] LABS: Albumin 2.4 g/dL (3.4-5.0); Albumin/Globulin Ratio 0.7 (1.1-1.8); Anion Gap 8.4 mEq/L (5.0-15.0); Bilirubin Total 0.5 mg/dL (0.2-1.0); Globulin 3.4 g/dL (2.3-3.5); Potassium 4.4 mEq/L (3.5-5.1); Protein, Total 5.8 g/dL (6.4-8.2)
[2024-03-09 08:24] LABS: Thyroid Stimulating Hormone 4.87 uIU/mL (0.358-3.740)
[2024-03-09] MEDS: SODIUM CHLORIDE 1 GM TAB PO SCH (10:02)
--- NOTE | 2024-03-09 22:42 | PN ---
Date of Progress Note: 03/09/2024 Time Of Service: 1:20 p.m. Subjective: Ms. Miguel is resting comfortably in bed. She denies any significant pain in the right hi p after mitigating factors including pain patch, neuro modulators, and narcotic medications have been adjusted. Review of Systems: She denies any significant fevers, chills, nausea, vomiting, myalgias, arthralgias. Mild pain in the right is noted, right hip proximal to moderate worse. Otherwise, no other complaints in terms of he r review of systems. Physical Examination: Vital Signs: Blood pressure 122/59, pulse 82, respiratory rate 16, temperature 97.6, oxygen saturati on 95%. General: Ms. Miguel is resting in bed in between therapy sessions. Musculoskeletal: She has had right femoral neck fracture at surgical site. It is not really disturb ing her at all as she is resting. Pain is now down to 4/5, down from 7 to 8/10. Laboratory Studies: White blood cell count 8.3, hemoglobin 8.4, platelets 532. Sodium 124, which garcia s chronically been low and actually has dropped. Dr. Mireles is following her for that. Her potassium is 4.4, chloride 90, BUN 22, creatinine 0.47, glucose 115, calcium 9.5. AST 15, ALT 21, total biliru bin 0.5, total protein is 5.8. Her prealbumin 14.5. TSH 4.87, free T4 normal at 0.97. Her choleste rol HDL ratio 2.79, HDL cholesterol 63, LDL 103. Current Medications: Medications have been reviewed and remain unchanged except she is taking the En sure Enlive 237 mL twice daily. She has sodium chloride tablets for hyponatremia, Eliquis for DVT pr ophylaxis, Colace for constipation, gabapentin for neuropathic pain. Progress Made With Physical, Occupational, And Speech Therapy: With physical therapy today, supine t o sit transfers, standby assistance and verbal cues. Ambulated in the parallel bars twice 6 steps ea ch with moderate assistance. Wheelchair mobilization 120 feet with standby assistance. Verbal cues required. With occupational therapy, maximum assistance for showering. Verbal cues required. Parti al assistance for wheelchair transfer. She did have some fatigue while bathing and performing activi ties of daily living. Assessment: Ms. Miguel is an 88-year-old patient in rehabilitation unit with a right femoral neck frac ture. She is making fair overall progress. She has improved pain control. She has comorbid malnutr ition, anemia, hyponatremia, tachycardia, cervical mass, decreased physical functioning, decreased mo bility, urinary tract infection. Plan: 1.She will continue with physical, occupational, and speech therapy. 2.We will continue with antibiotics for her urinary tract infection. We will continue with ferrous sulfate for anemia, Colace for constipation, vitamin D for low vitamin D level. Also, take tramadol for pain, Senokot for constipation, melatonin for insomnia. Comorbidities That Are Impacting Rehabilitation: As noted, there is pain from the femoral neck fract ure on the right and that is mitigated as noted with multiple modalities and she has hyponatremia as addressed by sodium replacement. There will be a recheck and she is followed by Dr. Mireles for that. TAQUERIA/STARLA Voice ID: [id number] Report ID: [id number]
--- NOTE | 2024-03-09 23:03 | PN ---
Date of Progress Note: 03/09/2024 Subjective: The patient was seen this morning for followup. She was lying in bed, not in distress. No new complaints or problems reported by the patient. Physical Examination: HEENT: Unremarkable. Lungs: Clear to auscultation. Heart: Sounds normal. Abdomen: Soft. Bowel sounds normal. No guarding, rigidity, tenderness, distention. Extremities: No leg edema. Laboratory Data: White count 8.3, hemoglobin 8.4, platelets 532. Sodium 125, potassium 4.4, chlorid e 89, bicarb 32, BUN 24, creatinine 0.47, glucose 107, albumin 2.4. Impression: 1.Right hip fracture. 2.Anemia. 3.Hyponatremia. 4.Hypertension. Plan: We will continue physical therapy under guidance of Dr. Gonzalez. Continue antihypertensive m edication per order. Continue current DVT prophylaxis. The patient has hyponatremia which was verif ied today with another blood work. TSH and triglyceride are normal, so I will go ahead and start her on sodium chloride 1 g 2 times a day and monitor electrolytes. I will be out of town until Wednesday and Dr. Gonzalez will take over this patient's care in my absence. HARRIETT/MODL Voice ID: [id number] Report ID: [id number]
[2024-03-10 06:55] LABS: Anion Gap 9.3 mEq/L (5.0-15.0); Potassium 4.3 mEq/L (3.5-5.1)
[2024-03-10] MEDS: ENSURE ENLIVE 237 ML CAN PO SCH (10:03)
--- NOTE | 2024-03-10 13:31 | P.RH.PN ---
Estimated Length of Stay: 14 Expected Discharge Date: 03/16/24 Discharge Disposition Plan: Home Family Support: Yes Fdc Goal: Mobility, Transfers, Self Care Vital Signs: Last Vital Signs Temp 97.6 F 03/10/24 06:51 Pulse 83 03/10/24 10:01 Resp 18 03/10/24 06:51 BP 130/60 03/10/24 10:01 Pulse Ox 92 03/10/24 06:51 Laboratory: Laboratory Last Values WBC 8.30 thou/uL (4.3-10.9) 03/09/24 05:47 RBC 2.66 M/uL (3.86-4.86) L 03/09/24 05:47 Hgb 8.4 g/dL (12.0-15.0) L 03/09/24 05:47 Hct 24.1 % (36.0-45.0) L 03/09/24 05:47 MCV 90.8 fL (80-100) 03/09/24 05:47 MCH 31.6 pg (27.0-35.0) 03/09/24 05:47 MCHC 34.8 g/dL (32.0-36.0) 03/09/24 05:47 RDW 11.9 % (12.1-15.2) L 03/09/24 05:47 Plt Count 532 thou/uL (152-406) H 03/09/24 05:47 MPV 6.4 fL (7.6-11.3) L 03/09/24 05:47 Plt Distribution Width Cancelled 03/04/24 05:00 Absolute Nucleated RBC Cancelled 03/04/24 05:00 Neutrophils % 65.8 % (41.7-73.7) 03/09/24 05:47 Lymphocytes % 20.2 % (15.3-44.8) 03/09/24 05:47 Monocytes % 11.2 % (3.3-12.3) 03/09/24 05:47 Eosinophils % 2.0 % (0-4.4) 03/09/24 05:47 Basophils % 0.8 % (0-1.3) 03/09/24 05:47 Nucleated RBC % Cancelled 03/04/24 05:00 Absolute Neutrophils 5.5 K/uL (1.8-8.0) 03/09/24 05:47 Absolute Lymphocytes 1.7 K/uL (0.7-4.9) 03/09/24 05:47 Absolute Monocytes 0.9 K/uL (0.1-1.3) 03/09/24 05:47 Absolute Eosinophils 0.2 K/uL (0-0.5) 03/09/24 05:47 Absolute Basophils 0.1 K/uL (0-0.5) 03/09/24 05:47 Diff Path Review Cancelled 03/04/24 05:00 Sodium 128 mEq/L (136-145) L D 03/10/24 06:33 Potassium 4.3 mEq/L (3.5-5.1) 03/10/24 06:33 Chloride 94 mEq/L (98-107) L 03/10/24 06:33 Carbon Dioxide 29 mEq/L (21-32) 03/10/24 06:33 Anion Gap 9.3 mEq/L (5.0-15.0) 03/10/24 06:33 BUN 24 mg/dL (7-18) H 03/10/24 06:33 Creatinine 0.58 mg/dL (0.55-1.02) 03/10/24 06:33 Est GFR (CKD-EPI) 87 ml/min (=/>90) L 03/10/24 06:33 Glucose 113 mg/dL (74-106) H 03/10/24 06:33 Calcium 9.8 mg/dL (8.5-10.1) 03/10/24 06:33 Magnesium 2.0 mg/dL (1.6-2.4) 03/09/24 05:47 Total Bilirubin 0.5 mg/dL (0.2-1.0) 03/09/24 07:44 AST 15 U/L (15-37) 03/09/24 07:44 ALT 21 U/L (13-56) 03/09/24 07:44 Alkaline Phosphatase 103 U/L (45-117) 03/09/24 07:44 Serum Total Protein 5.8 g/dL (6.4-8.2) L 03/09/24 07:44 Albumin 2.4 g/dL (3.4-5.0) L 03/09/24 07:44 Globulin 3.4 g/dL (2.3-3.5) 03/09/24 07:44 Albumin/Globulin Ratio 0.7 (1.1-1.8) L 03/09/24 07:44 Prealbumin 14.5 mg/dL (20-40) L 03/09/24 05:47 Triglycerides 49 mg/dL (<150) 03/09/24 07:44 Cholesterol 176 mg/dL (<200) 03/09/24 07:44 LDL Cholesterol, Calc 103 mg/dL (<130) 03/09/24 07:44 HDL Cholesterol 63 mg/dL (40-60) H 03/09/24 07:44 Cholesterol/HDL Ratio 2.79 03/09/24 07:44 TSH 4.870 uIU/mL (0.358-3.740) H 03/09/24 07:44 Free T4 0.97 ng/dL (0.76-1.46) 03/09/24 07:44 Urine Color Colorless (Yellow) 03/04/24 05:35 Urine Clarity Extremely turbid (Clear) H 03/04/24 05:35 Urine pH 8.0 (5.0-7.0) H 03/04/24 05:35 Ur Specific [place] 1.008 (1.005-1.030) 03/04/24 05:35 Glucose (UA)(Auto) Negative (Negative) 03/04/24 05:35 Urine Ketones Negative (Negative) 03/04/24 05:35 Urine Blood Negative (Negative) 03/04/24 05:35 Urine Nitrite Negative (Negative) 03/04/24 05:35 Urine Bilirubin Negative (Negative) 03/04/24 05:35 Urine Urobilinogen Normal (Normal) 03/04/24 05:35 Ur Leukocyte Esterase Negative Gabriel/uL (Negative) 03/04/24 05:35 Urine RBC None seen /HPF (None Seen) 03/04/24 05:35 Urine WBC None seen /HPF (<5) 03/04/24 05:35 Ur Squamous Epith Cells None seen /HPF (None Seen) 03/04/24 05:35 Amorphous Crystals 2+ /HPF (None Seen) H 03/04/24 05:35 Urine Bacteria None seen /HPF (<20) 03/04/24 05:35 Urine Culture Reflexed Not needed 03/04/24 05:35 Urine Total Protein Negative (Negative) 03/04/24 05:35 Weight: 88 lb Wound Present: Yes Closed Surgical Incision Present: Yes Negative Pressure Wound Therapy Present: No Physician Update: Low Na or 128 on NaCl 1 gram twice daily. Mild anemia and malnutrition. Stage II pressure ulcer on her back. SLUMS 13, poor short term memory. Doing well with PT,. Independent with bed mobility and transfers, RW 6' with SBA. 0/5 STG with occupational therapy. Comment: bruising right face (near R eye) Summary: Patient's care plan and long-term goals have been reviewed and revised as necessary. Please see the Rehabilitation Signature page for all necessary signatures.
[2024-03-11] MEDS ORDERED: BISACODYL 10 MG RECTAL SUPP PR PRN (14:09)
[2024-03-11] MEDS: SENOSIDES 8.6 MG TAB PO PRN (14:19)
[2024-03-11] MEDS ORDERED: MAGNESIUM HYDROXIDE 8% 30 ML PO PRN (20:20)
[2024-03-11] MEDS: NA CHLORIDE 0.9% 1,000 ML IV SCH (21:03)
[2024-03-12] MEDS: BISACODYL 10 MG RECTAL SUPP PR PRN (02:10)
[2024-03-12] MEDS: MAGNESIUM HYDROXIDE 8% 30 ML PO PRN (05:08)
--- NOTE | 2024-03-12 08:02 | RAD REPORT ---
EXAM DESCRIPTION: RAD - Abdomen 1 View (KUB) - 03/12/2024 6:20 am CLINICAL HISTORY: abd distention COMPARISON: Pelvis Wo Cont dated 02/26/2024 FINDINGS: Nonobstructive bowel gas pattern. No acute osseous abnormality.Visualized lungs are unrema rkable.No abnormal calcifications. Thoracolumbar curvature. Right hip ORIF. Large rectal stool burden . Moderate formed stool in the ascending colon. IMPRESSION: Nonobstructive bowel gas pattern. Large rectal stool burden and moderate ascending colon stool burden.
[2024-03-12] MEDS: POLYETHYL GLY 3350 17 GM/DOSE PO SCH (08:09)
[2024-03-12] MEDS: MEGESTROL 40 MG TAB PO SCH (08:09)
[2024-03-12] MEDS: CIPROFLOXACIN HCL 500 MG TAB PO SCH (08:09)
[2024-03-12] MEDS: FLEET ENEMA ADULT PR PRN (19:03)
[2024-03-13 06:19] LABS: Absolute Basophils 0.1 K/uL (0-0.5); Absolute Eosinophils 0.1 K/uL (0-0.5); Absolute Lymphocytes (CBC) 1.1 K/uL (0.7-4.9); Absolute Neutrophil 13.4 K/uL (1.8-8.0); Basophils % 0.5 % (0-1.3); Eosinophils % 0.4 % (0-4.4); Hematocrit 25.8 % (36.0-45.0); Hemoglobin 8.4 g/dL (12.0-15.0); Lymphocytes % 6.8 % (15.3-44.8); MCH 29.5 pg (27.0-35.0); MCHC 32.5 g/dL (32.0-36.0); MCV 90.8 fL (80-100); MPV 6.9 fL (7.6-11.3); Monocytes % 6.2 % (3.3-12.3); Neutrophils % 86.1 % (41.7-73.7); Nucleated Red Blood Cells % 0.1 % (0-0); Platelets 705 thou/uL (152-406); RBC Red Blood Cell Count 2.84 M/uL (3.86-4.86); Red Cell Distribution Width 12.7 % (12.1-15.2)
[2024-03-13 06:35] LABS: Anion Gap 10.8 mEq/L (5.0-15.0)
[2024-03-13 06:37] LABS: Potassium 4.8 mEq/L (3.5-5.1)
[2024-03-13 09:42] LABS: Blood Morphology Comment NOT SEEN (NOT SEEN); Platelet Estimate INCR; White Blood Cell Scan OK (OK)
[2024-03-13] MEDS: NA CHLORIDE 0.9% 1,000 ML IV SCH (10:54)
[2024-03-13] MEDS: SODIUM CHLORIDE 1 GM TAB PO SCH (14:21)
[2024-03-13 16:29] LABS: Anion Gap 8.6 mEq/L (5.0-15.0); Potassium 4.6 mEq/L (3.5-5.1)
--- NOTE | 2024-03-13 16:42 | RAD REPORT ---
EXAM DESCRIPTION: RAD - Abdomen 1 View (KUB) - 03/13/2024 4:05 pm CLINICAL HISTORY: constipation COMPARISON: Abdomen 1 View (KUB) dated 03/12/2024 TECHNIQUE: Single AP view of the abdomen. FINDINGS: Nonobstructive bowel gas pattern. Relative paucity of bowel gas in the pelvis, nonspecific . Stool burden in the rectum. No air-fluid levels, free air, or pneumatosis. No suspicious calcificat ions. No significant bony abnormality. IMPRESSION: Mild stool burden in the rectum com are reduced from the prior exam. Relative paucity of bowel gas in the pelvis, nonspecific.
[2024-03-13 18:55] VITALS: BP 129/65; TEMP 99.3
[2024-03-13 19:07] LABS: Phosphorus 2.4 mg/dL (2.5-4.9); Uric Acid 3.4 mg/dL (2.6-6.0)
[2024-03-13] MEDS: UREA 15 GM POWDER PACKET PO SCH (20:08)
--- NOTE | 2024-03-13 23:57 | CON ---
Date of Consultation: 03/13/2024 History Of Present Illness: Nephrology consultation was requested for hyponatremia. Sodium level has dropped from 130 to 123. The patient has multiple medical problems. During this hospitalization, she developed severe constipation and was treated with laxatives. Today, she developed diarrhea. She had multiple loose bowel movements and sodium level again dropped from 123 to 121. The patient was started on sodium chloride tablet 2 days ago for [id number] hyponatremia and Sodium level improved to 128, subsequently despite sodium chloride tablets, sodium level has declined again to 123 and then to 121. 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 She is admitted to the hospital for physical therapy, and she was undergoing physical therapy when she developed abdominal discomfort and she was found to have constipation. She had x-ray done, which showed constipation and she received multiple laxatives, including Senokot, bisacodyl as well as Fleets Enema. She has history of hypertension. She was found to have low prealbumin. She has hypertension and was treated with multiple blood pressure medications, including amlodipine. She apparently had urinary retention and she failed bladder training, and Soto catheter was placed. She required ongoing bladder training, and she denies urination problem prior to fall and fracture. She was found to have hemoglobin of 8.7, hematocrit 27.3. WBC today was found to be elevated from her previous baseline, which was normal. As a result of her fall, fracture, and comorbid condition, she was determined to be appropriate candidate for acute inpatient rehabilitation and this was started, although over the last few days, she developed progressively worse hyponatremia. TSH level is slightly elevated. 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 Past Medical History: As noted above. 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 She had surgery for that. In addition, she has osteoporosis; history of urinary retention; urinary tract infection; and hypertension. Medications: Tylenol, Norvasc, Eliquis, Os-Curt, vitamin D, Colace, lidocaine patch, Ensure, Senokot. Laboratory Data: Lab work on admission showed white blood cell count 5.7, hemoglobin 8.5, platelets 348. Sodium 131, potassium 4.3, chloride 97, carbon dioxide 31, BUN 19, creatinine 0.49, glucose 114. Calcium 9.6, magnesium 1.9, albumin 2.4. Prealbumin 13.4. Prior imaging study included MRI of the spine, which showed small T2 hyperintense lesion in the kidneys, characterized on MRI. The imaging of the chest did not show left thyroid nodule noted on non-emergent ultrasound. Family History: Noncontributory. Social History: Denies tobacco, alcohol, or IV drugs. Review of Systems: She has generalized myalgia, arthralgia. Denies fever, chills. Denies chest pain, palpitation. She has abdominal discomfort related to constipation and developed multiple bowel movements today after several laxative medications. Physical Examination: HEENT: Normocephalic, atraumatic. Neck: Supple. Chest: Clear. Heart: S1, S2. Abdomen: Soft, benign, nontender. Extremities: No edema. Impression And Plan: 1. Hyponatremia. The patient will have workup for hyponatremia. Sodium level has declined. The patient was hypovolemic and received normal saline. Plan is to continue normal saline for hydration and start p.o. fluid restriction to prevent worsening of the hyponatremia. In view of syndrome of inappropriate antidiuretic hormone, the patient will continue sodium chloride tablets and dose was increased. The patient despite IV fluids developed progressively worse hyponatremia and plan is to stop normal saline and use normal saline only for hypovolemia. Continue p.o. fluid restriction and start urea powder for hyponatremia treatment. The patient may be a candidate for Samsca. Plan is to re-check renal panel and evaluate sodium level. 2. The patient developed leukocytosis. Plan is to check urine culture and blood culture. Check CT scan of the abdomen and pelvis without contrast to rule out urinary retention. Continue Soto catheter as well. EB/MODL Voice ID: [id number] Report ID: [id number] VIGNESH
--- NOTE | 2024-03-14 | PN ---
Date of Progress Note: 03/13/2024 Time Of Service: 1:25 p.m. Subjective: Ms. Miguel is somewhat less energetic today. She did have significant abdominal pain and distention. A KUB study was done that showed lots of retained stool in the rectum and ascending colo n. She did have Fleet enema, was able to clear a lot of her stool. She did have loose stools up to around 10 this morning and those have since resolved. A repeat KUB study today showed some significa nt improvement with now mild stool burden in the rectum, much reduced from the prior examination. Th ere is a relative paucity of bowel gas in the pelvis. Her blood work, however, did shoot up to 15.5 white blood cells from being normal over the last 9 days. Hemoglobin remained around 8.4 and note he r neutrophils were 86.1 with the elevated white count. Dr. Mireles is involved of Renal Service to help with management of her fluid level as she also had significantly low hyponatremia, today down to 121 , chloride low at 90, creatinine normal at 0.57. She is receiving fluids and has had gentle hydratio n 75 cc an hour and normal saline a liter is ongoing. Objective: She notes some improvement in abdominal tenseness and discomfort. She also has mild pain in the right hip, where she has the right femoral neck fracture repair. Some generalized fatigue an d some depression is reported as well. Physical Examination: Vital Signs: Blood pressure 129/65, pulse of 107, respiratory rate 18, temperature 99.3, oxygen satu ration 95%. General: Ms. Miguel is resting in bed, slightly turned to the right side. She appears somewhat depres sed, but she is able to interact and smile appropriately. HEENT: She is normocephalic, atraumatic. Sclerae anicteric. Oropharynx pink and moist. Neck: Supple. Chest: Good air movement. Abdomen: Mildly distended, but soft, and there is no rebound. Extremities: On the right, mild edema postoperatively in the right lower extremity from the right fe moral neck fracture, otherwise intact. Laboratory Studies: White blood cell count 15.5 with 86.1 neutrophils, hemoglobin 8.4, platelets 705 . Sodium 121, potassium 4.6, chloride 90, carbon dioxide 27, BUN 27 as well, uric acid 3.4, phosphor us 2.4, magnesium 2.0. Progress Made With Physical And Occupational Therapy: Today, she did [id number] transfers with mo derate assistance and verbal cues. Multiple iwr-pu-xbcfk transfers from wheelchair to bed with maxim um assistance. Toilet transfer done twice with maximum assistance. With occupational therapy, she n eeded moderate assistance for sequencing 3 events and 80% accuracy. Able to do divergent naming with minimum assistance, required moderate assistance for convergent naming. She recalled 3 of 3 unrelat ed items after 1 minute with moderate assistance. Ms. Miguel is making slow progress more recently as she has had significant stool retention. She also has marked hyponatremia. She is on the management of her primary care physician as well as the Renal Service for her comorbid conditions. She is receiving IV normal saline. She has had 2 g of sodium chloride now twice daily added to her regimen. She is no longer having loose stools. She does have additional comorbidities of firstly osteoarthritis and femoral neck fracture, status post repair. Julia ocampo has neuropathic pain, poor appetite, for which Megace is added. She has melatonin for insomnia, En sure Enlive for malnutrition. She has ciprofloxacin on board from 03/12 to 03/17 for urinalysis. Cu ltures did show 3+ gram-negative rods; however, sensitivities have been still pending. Plan: 1.She will continue with physical, occupational, and speech therapy for 3.5 hours, 5 of 7 days. 2.Continue with her list of comorbid medications for conditions that have been noted and she will be followed for the sodium, followed for her white blood cell count elevation. She is on ciprofloxacin as needed, do a repeat chest x-ray, and if need be and if she has fever, we will do lactic acid, procalcitonin for sepsis workup, and again continue therapy as noted. LB/MODL Voice ID: [id number] Report ID: [id number]
--- NOTE | 2024-03-14 06:48 | DS ---
Date of Discharge: 03/13/2024 Disposition: Transferred to medical floor, ICU. Physical Examination: HEENT: Unremarkable. Lungs: Clear to auscultation. Heart: Sounds normal. Abdomen: Soft. Bowel sounds normal. No guarding, rigidity, tenderness, distention. Extremities: No leg edema. Laboratory Data: Initial blood work on 03/04/2024, white count was 5.7, hemoglobin was 8.5, and plat elet count 348. Today, white count 15.5, hemoglobin 8.4, and platelet count 705. For chemistry toda y morning, sodium level was 123 with potassium 4.8, chloride 89, bicarb 28, BUN 30, creatinine 0.62, glucose 97, and the last chemistry today shows sodium level has gone down to 121. Her TSH was 4.870 with triglycerides 49, done on 03/09/2024. Discharge Medications And Instructions: See copy of transfer MAR for details. Final Diagnoses: 1.Right hip fracture. 2.Anemia due to acute blood loss. 3.Urinary tract infection. 4.Hyponatremia. 5.Hypertension. Hospital Course: This is an 88-year-old very pleasant female patient, who had fallen down and had ri ght hip fracture and initially she was brought into emergency room with this, but we did not have any orthopedic surgeon available pest control applicator, so she was transferred to outside hospital, where she had surg don done for right hip fracture and subsequently after surgery, she was brought into our rehab for in patient rehab. The patient continued to receive her amlodipine for her hypertension and Eliquis 2.5 mg 2 times a day for DVT prophylaxis. Dr. Gonzalez on rehab floor provided her physical therapy guid ance and the patient did have urinary tract infection and was started on Cipro. She had mild hyponat remia in the beginning with sodium level 131 to 132, but on 03/09/2024, sodium level dropped down to 124 and 125 range and at that time, we did some additional blood work including good triglyceride and TSH, which came back unremarkable. She was started on sodium chloride tablet 1 g 2 times a day and her sodium level came up to 128 on 03/10/2024. This morning, her sodium level dropped down again to 123 and Nephrology consultation was requested. Dr. Villaseñor who saw her from Nephrology Service and late r today since her sodium level has dropped down even further to 121, decision was made to transfer he r to medical floor. Instead of putting her on regular medical floor, I decided to keep her in ICU be cause in case if her sodium level drops down any further and if we need to consider hypertonic saline solution, then she will need to be in intensive care unit for that reason. The patient was transfer red in stable condition and see copy of current medication list and MAR for details and orders. I di d call the patient's daughter on the phone this evening and communicated all the details with her as well. HARRIETT/MODL Voice ID: [id number] Report ID: [id number]
[2024-03-14] MEDS ORDERED: POTASS/SODIUM PHOSPHATE 1 PKT POWD.PACK PO SCH (08:00)
--- NOTE | 2024-03-14 20:23 | RAD REPORT ---
EXAM DESCRIPTION: Abdomen Pelvis Wo Contrast 03/13/2024 11:27 PM CDT CLINICAL HISTORY: 88 years, Female, abdominal pain COMPARISON: None TECHNIQUE: Noncontrast images of the abdomen and pelvis were performed from the lung bases to the is chial tuberosities. In addition multiplanar reformats in the coronal and sagittal plane were obtained and reviewed. An individualized dose optimization technique, Automated Exposure Control, was utilized for the perfo rmed procedure. FINDINGS: The lack of IV contrast limits evaluation of solid organs, subtle lesions cannot be exclud ed. Lung bases: The lung bases demonstrated presence of small bilateral pleural effusions with minimal co mpressive atelectatic changes. Minimal coronary artery calcifications. Liver: Grossly the unopacified liver demonstrates to be normal, no focal lesions are identified. Gallbladder: The gallbladder was not visualized suggesting the possibility of to previous cholecystec saúl. No significant biliary duct dilatation. Adrenal glands: The adrenal glands were not visualized. Pancreas: The pancreas was suboptimal and evaluation with no gross abnormalities Spleen: The spleen demonstrate to be normal. Kidneys: Grossly the unopacified kidneys demonstrate to be within normal limits. There is a right r enal pelvis calyectasis most likely corresponding to extra renal pelvis. GI: Haziness throughout the peritoneal fat limits the evaluation. Grossly the unopacified stomach and small bowel demonstrate to be within normal limits. No evidence for bowel dilatation and/or free air . There is mild fecal stasis. Questionable minimal mucosal thickening of the distal rectum could seun espond to proctitis. : The urinary bladder demonstrate markedly distended. Genitalia: The uterus demonstrate to be somewhat atrophic. No adnexal masses. Abdominal aorta: The aorta demonstrate demonstrated presence of atherosclerotic disease extending int o the aortic bifurcation and iliac arteries. Retroperitoneum: There is no retroperitoneal lymphadenopathy. Minimal haziness within the peritoneal fat could correspond to edema and/or early ascites. Bones: The bones demonstrate to be demineralized. The lumbar spine demonstrate minimal degenerative c hanges at L2-L4. Posterior facet hypertrophy lower lumbar spine. ORIF right hip joint. Soft tissues: Haziness within the skin/subcutaneous tissue correspond to edema. IMPRESSION: Markedly distended urinary bladder. Questionable minimal mucosal thickening of the distal rectum could correspond to proctitis. Mild fecal stasis. Minimal haziness within the peritoneal fat could correspond to edema and/or early ascites. Small bilateral pleural effusions with minimal compressive atelectatic changes. Electronically signed by: Matthew Chao MD 03/13/2024 11:31 PM CDT RP Due to temporary technical issues with the PACS/Fluency reporting system, reports are being signed by the in house radiologists without review as a courtesy to insure prompt reporting. The interpreting radiologist is fully responsible for the content of the report.
== END 2024-03-13 20:10 | disposition short-term general hospital (02) | DRG 560 ==
LOC: 5TH 22:01
PROVIDERS: ADMIT Internal Medicine; ATTEND Psychiatry & Neurology Neurology with Special Qualifications in Child Neurology
DX: S72.001D Fracture of unspecified part of neck of right femur, subsequent encounter for closed fracture with routine healing (principal); D62 Acute posthemorrhagic anemia; E46 Unspecified protein-calorie malnutrition; N39.0 Urinary tract infection, site not specified; Z68.1 Body mass index [BMI] 19.9 or less, adult; E87.1 Hypo-osmolality and hyponatremia; I10 Essential (primary) hypertension; Q74.0 Other congenital malformations of upper limb(s), including shoulder girdle; M81.0 Age-related osteoporosis without current pathological fracture; R00.0 Tachycardia, unspecified; R33.9 Retention of urine, unspecified; M41.9 Scoliosis, unspecified; E78.5 Hyperlipidemia, unspecified; M15.9 Polyosteoarthritis, unspecified; N88.8 Other specified noninflammatory disorders of cervix uteri; L89.102 Pressure ulcer of unspecified part of back, stage 2; S00.83XD Contusion of other part of head, subsequent encounter; K59.00 Constipation, unspecified; G47.00 Insomnia, unspecified
CPT/HCPCS: 36415; 74018; 74176; 80048; 80053; 80061; 81001; 82040; 83735; 84100; 84134; 84439; 84443; 84550; 85025; 87086; 87088; 92523; 97110; 97116; 97129; 97163; 97165; 97530; 97542; J1644; J2001; J7030

== ENCOUNTER 2024-03-13 22:13 | Inpatient (IN) | payer OTHER ==
[2024-03-13 22:27] VITALS: BMI 22.5
[2024-03-13] MEDS ORDERED: ACETAMINOPHEN 500 MG TAB PO PRN (22:41)
[2024-03-13] MEDS ORDERED: BISACODYL 10 MG RECTAL SUPP PR PRN (22:44)
[2024-03-13] MEDS ORDERED: MAGNESIUM HYDROXIDE 8% 30 ML PO PRN (23:09)
[2024-03-13] MEDS ORDERED: SENOSIDES 8.6 MG TAB PO PRN (23:13)
[2024-03-14 00:55] LABS: Potassium 4.3 mEq/L (3.5-5.1)
[2024-03-14 00:56] LABS: Anion Gap 10.3 mEq/L (5.0-15.0)
[2024-03-14 05:53] LABS: Anion Gap 9.1 mEq/L (5.0-15.0); Magnesium 1.9 mg/dL (1.6-2.4); Phosphorus 2.7 mg/dL (2.5-4.9); Potassium 4.1 mEq/L (3.5-5.1)
[2024-03-14] MEDS: COSYNTROPIN 0.25 MG VIAL IV SCH (08:00)
[2024-03-14] MEDS: ENSURE ENLIVE 237 ML CAN PO SCH (08:00)
--- NOTE | 2024-03-14 08:03 | HP ---
Date of Admission: 03/13/2024 Chief Complaint: Hip pain. History Of Present Illness: This is an 88-year-old very pleasant female patient who had fallen down at home and had right hip fracture for which she had surgery done at outside hospital and subsequentl y she was brought into our rehab unit for inpatient rehab physical therapy. While she was on the [facility] floor she received physical therapy under guidance of Dr. Gonzalez. Her medical problems remained stable. She had anemia due to acute blood loss and hemoglobin also remained stable around 8.4 to 8. 5 range. She had mild hyponatremia with sodium level of 131 to 132, which remained stable, but last week on 03/09/2024, her sodium level had dropped down to 124 to 125 range. At that time, her TSH and lipid profile showed unremarkable test results and she was started on sodium chloride tablet 1 g 2 t imes a day. Her sodium level did come up to 128 and this was on 03/10/2024 and today her sodium leve l dropped down to 123 this morning and this afternoon it dropped down even further to 121. Nephrolog y consultation was requested from Dr. Villaseñor and when her sodium level dropped down to 121, decision wa s made to transfer her from rehab floor to medical floor. Instead of bringing her to regular medical bed, decision was made by me to put her in ICU for this hyponatremia problem thinking about possibil ity of use of hypertonic saline solution in case if her sodium level does not improve and continues t o drop, then we will need to consider such treatment and she will need to be in ICU for that. Physical Examination: Vital Signs: Temperature 99.3, pulse 107, respiratory rate 18, blood pressure 129/65. Height 5 feet 2 inches, weight 103 pounds. General: Awake, alert, oriented, not in distress. HEENT: Head atraumatic, normocephalic. Conjunctivae nonerythematous. Sclerae white. Mouth, no thr ush or edema noted. Ears/Nose, no mass, lesion, discharge noted. Neck: Supple. No JVD, lymph nodes, bruit, thyromegaly noted. Lungs: Bilateral good equal air entry. Clear to auscultation. No rhonchi. No rales. Heart: Normal heart sounds, no murmur or gallop. Abdomen: Soft, bowel sounds normal. No guarding, rigidity, tenderness, mass, hepatosplenomegaly, dis tention, or bruit noted. Extremities: Right hip has surgical dressing present. No evidence of any redness, swelling of the l ower extremity. Her right upper extremity is underdeveloped and this is chronic finding. Skin: No rash, ulcer, cellulitis. Lymphatics: No lymph node enlargement in neck, supraclavicular, infraclavicular region. Neuro: No focal neurological deficit. Chest: Unremarkable. External Genitalia: Deferred. Rectal: Deferred. Laboratory Data: Her last serum sodium level was 121 this evening. Earlier today, her sodium level was 123, potassium 4.8, chloride 89, bicarb 28, BUN 30, creatinine 0.62, glucose 97. White count 15. 5, hemoglobin 8.4, platelets 705. Impression: 1.Hyponatremia. 2.Urinary tract infection. 3.Anemia due to acute blood loss. 4.Hypertension. Plan: We will go ahead and admit her to intensive care unit for further evaluation and management of this problem. The patient is appropriate for inpatient and is expected to spend 2 midnights in hosp ital. For hypertension, we will continue her amlodipine per order, monitor blood pressure if necessa ry, adjust medication. For her urinary tract infection, we will continue Cipro as per order. We doroat l repeat blood work tomorrow morning including CBC. For hyponatremia, we will continue to follow up with wad compressor operator adjuster for further management. The patient is on salt tablet 1 g 2 times a day, which we will continue that and Dr. Villaseñor has ordered further workup including the urine and serum osmolality a nd I have ordered cortisol stimulation test, which will be done tomorrow morning. We will continue E liquis for DVT prophylaxis. Details and plan of treatment discussed with the patient as well as I di d call the patient's daughter and communicated all the details with her on the phone this evening as well. Total time spent today was 90 minutes including care on the rehab floor, evaluation and manage ment for this particular admission and review of hospital record for rehab admission and communication with the family members . HARRIETT/MODL Voice ID: [id number]
[2024-03-14] MEDS: COSYNTROPIN 0.25 MG VIAL IV ONE (08:09)
[2024-03-14 08:20] LABS: Absolute Eosinophils 0.1 K/uL (0-0.5); Absolute Lymphocytes (CBC) 0.9 K/uL (0.7-4.9); Absolute Monocytes 0.7 K/uL (0.1-1.3); Absolute Neutrophil 9.3 K/uL (1.8-8.0); Basophils % 0.3 % (0-1.3); Eosinophils % 0.7 % (0-4.4); Hematocrit 25.2 % (36.0-45.0); Hemoglobin 8.1 g/dL (12.0-15.0); Lymphocytes % 8.3 % (15.3-44.8); MCH 29.5 pg (27.0-35.0); MCHC 32.4 g/dL (32.0-36.0); MCV 91.1 fL (80-100); Monocytes % 6.5 % (3.3-12.3); Neutrophils % 84.2 % (41.7-73.7); Platelets 668 thou/uL (152-406); RBC Red Blood Cell Count 2.76 M/uL (3.86-4.86); Red Cell Distribution Width 12.6 % (12.1-15.2)
[2024-03-14] MEDS: METOPROLOL TAR 25 MG TAB PO SCH (09:00)
[2024-03-14] MEDS: DOCUSATE NA 100 MG CAP PO SCH (09:00)
[2024-03-14] MEDS ORDERED: SODIUM CHLORIDE 1 GM TAB PO SCH (09:00)
[2024-03-14] MEDS: APIXABAN 2.5 MG TABLET PO SCH (09:00)
[2024-03-14] MEDS ORDERED: UREA 15 GM POWDER PACKET PO SCH (09:00)
[2024-03-14] MEDS ORDERED: AMLODIPINE 5 MG TAB PO SCH (09:00)
[2024-03-14] MEDS: GABAPENTIN 300 MG CAP PO SCH (09:52)
[2024-03-14] MEDS: CALCIUM CARBONATE 500 MG TAB PO SCH (09:52)
[2024-03-14] MEDS: CIPROFLOXACIN HCL 500 MG TAB PO SCH (09:52)
[2024-03-14] MEDS: Mupirocin NASAL 2 APPL/1 GM TUBE NAS SCH (09:52)
[2024-03-14] MEDS: VITAMIN D 1000 UNIT TAB PO SCH (09:52)
[2024-03-14] MEDS: MEGESTROL 40 MG TAB PO SCH (09:53)
[2024-03-14] MEDS: FERROUS SULFATE 325 MG TAB PO SCH (09:53)
[2024-03-14] MEDS: SODIUM CHLORIDE 1 GM TAB PO SCH ×2 (09:54→20:21)
[2024-03-14] MEDS: CRANBERRY FRUIT EXTRACT 200 MG CAP PO SCH (09:54)
[2024-03-14] MEDS: LIDOCAINE 4% PATCH TOP SCH (09:54)
[2024-03-14] MEDS: TRAMADOL HCL 50 MG TAB PO PRN (11:20)
--- OUTSIDE RECORDS SUMMARY | 2024-03-14 14:28 | XMS REPORT | Continuity of Care Document ---
Author Name Unknown Address [address] [place] [address] [facility] thconnect Address [address] [place] [address] Care Team Providers Care Health Insurance Assessor Name Role Phone NIRMAL FINNEGAN Attending Clinician Unavailable RAMONITA FORMAN Attending Clinician Unava ilable [email or web address]_S Attending Clinician Unavaila ble RAMONITA FORMAN Admitting Clinician Unava ilable [email or web address]_S Admitting Clinician Unavaila ble Payers Payer Name Policy Type Policy Number Effective Date Expirati on Date Source MOHAN KEITH SALVADORA [id number] 2024 00:00:00 [place]IC[place]: [place] [id number] 2000 00:00:00 MUTUAL KEITH KHALIL (MEDICARE SUPPLEMENT) [id number] 2019 00:00:00 Encounters Start Date/Time End Date/Time Encounter Type Admission Type Attending Clinicians Care Facility Care Department Encounter ID Source 2021-12-29 15:09:04 Outpatient [facility] [id number] [facility] 2021-12-26 09:07:02 Outpatient [facility] [id number] [facility] 2021-12-25 14:19:02 Outpatient [facility] [id number] [facility] 2024-03-16 12:30:00 2024-03-16 12:30:00 Outpatient NIRMAL FINNEGAN [facility] [id number] [facility] 2024-02-26 19:31:00 2024-03-03 20:45:00 Inpatient RAMONITA MALDONADO [facility] [id number] [facility] 2023-05-19 00:00:00 2023-05-19 00:00:00 Outpatient GC_[email or web address] diyala_S PRIV PRIV [id number] [facility] 2023-05-18 00:00:00 2023-05-18 00:00:00 Outpatient [email or web address] diyala_S PRIV PRIV [id number] [facility]
--- NOTE | 2024-03-14 14:33 | ECHO ---
HEIGHT: 5 ft 0 in WEIGHT: 115 lb 6.4 oz DATE OF STUDY: 03/14/[address]: Todd Mireles MD 2-DIMENSIONAL: YES M.MODE: YES DOPPLER: YES COLOR FLOW: YES TDS: PORTABLE: YES DEFINITY: BUBBLE STUDY: DIAGNOSIS: ATRIAL FIBRILLATION CARDIAC HISTORY: CATHERIZATION: NO SURGERY: NO PROSTHETIC VALVE: NO PACEMAKER: NO MEASUREMENTS (cm) DIASTOLIC (NORMALS) SYSTOLIC (NORMALS) IVSd 0.9 (0.6-1.2) LA Diam 2.3 (1.9-4.0) LVEF 60-65% LVIDd 1.8 (3.5-5.7) LVIDs 1.3 (2.0-3.5) %FS 28% LVPWd 0.9 (0.6-1.2) Ao Diam 3.2 (2.0-3.7) 2 DIMENSIONAL ASSESSMENT: RIGHT ATRIUM: NORMAL LEFT ATRIUM: NORMAL RIGHT VENTRICLE: NORMAL LEFT VENTRICLE: NORMAL TRICUSPID VALVE: MILD TRICUSPID REGURGITATION MITRAL VALVE: NORMAL PULMONIC VALVE: NORMAL AORTIC VALVE: MILD AORTIC REGURGITATION PERICARDIAL EFFUSION: NONE AORTIC ROOT: NORMAL LEFT VENTRICULAR WALL MOTION: NORMAL DOPPLER/COLOR FLOW: GRADE I DIASTOLIC DYSFUNCTION COMMENTS: 1. NORMAL LEFT VENTRICULAR SYSTOLIC FUNCTION, EJECTION FRACTION 60-65%, NORMAL WALL MOTION 2. GRADE I DIASTOLIC DYSFUNCTION 3. ELEVATED FILLING PRESSURE (RIGHT ATRIUM GREATER THAN 20 mmHg) TECHNOLOGIST: TARYN MCKEON
[2024-03-14 17:02] LABS: Anion Gap 9.4 mEq/L (5.0-15.0); Potassium 4.4 mEq/L (3.5-5.1)
--- NOTE | 2024-03-14 17:11 | P.CNS ---
Date of Consult: 03/14/24 Chief Complaint: atrial fibrillation History of Present Illness: Patient is 88 y/o femalre, was admitted for hyponatremia, found to be in AF, not sure if it is old or new, denies having chest pain, no palpitations, no SOB, no syncope. Allergies No Known Allergies Allergy (Verified 07/03/21 14:50) Home medications list reviewed: Yes Home Medications: Amlodipine [Norvasc*] 7.5 tab PO DAILY 07/03/21 Acetaminophen [Tylenol -Tablet] 500 mg PO Q4HP PRN 03/14/24 Apixaban [Eliquis] 2.5 mg PO BID 03/14/24 Bisacodyl [Dulcolax] 10 mg RC PRN 03/14/24 Calcium Carbonate 500 mg PO BID 03/14/24 Cholecalciferol (Vitamin D3) [Vitamin D 1000 Iu Tab] 1,000 unit PO DAILY 03/14/24 Ciprofloxacin HCl [Cipro 500 MG Tablet] 500 mg PO BID 03/14/24 Cranberry Fruit Extract [Cranberry] 200 mg PO BID 03/14/24 Docusate [Colace Cap] 100 mg PO BID 03/14/24 Ensure Enlive 237 ml PO BID 03/14/24 Ferrous Sulfate 325 mg PO DAILY 03/14/24 Gabapentin 300 mg PO BID 03/14/24 Lidocaine 4% Patch [Lidoderm 5% Patch] 1 patch TD DAILY 03/14/24 Mag Hydroxide 8% [Milk Of Magnesia] 30 ml PO DAILY 03/14/24 Megestrol [Megace] 40 mg PO BID 03/14/24 Melatonin 3 mg PO BEDTIME 03/14/24 Senosides [Senokot] 17.2 mg PO PRN 03/14/24 Sodium Chloride Tab [NaCl Tabs] 2 gm PO TID 03/14/24 Tramadol HCl [Ultram] 50 mg PO Q6H 03/14/24 Urea [Ure-Na] 15 gm PO TID 03/14/24 - Past Medical/Surgical History Diabetic: No -: osteoporosis -: skin cancer -face -: arthritis -: craniotomy -: facial sx - Social History Alcohol use: No CD- Drugs: No Caffeine use: Yes Review of Systems 10-point ROS is otherwise unremarkable Physical Examination Temp Pulse Resp BP Pulse Ox 97.6 F 75 16 107/62 96 03/14/24 12:00 03/14/24 15:00 03/14/24 15:00 03/14/24 15:00 03/14/24 15:00 General: Alert, In no apparent distress HEENT: Atraumatic, PERRLA, Mucous membr. moist/pink, EOMI, Sclerae nonicteric Neck: Supple, 2+ carotid pulse no bruit, No LAD, Without JVD or thyroid abnormality Respiratory: Clear to auscultation bilaterally, Normal air movement Cardiovascular: Irregular heart rate/rhythm Gastrointestinal: Normal bowel sounds, No tenderness Musculoskeletal: No tenderness Integumentary: No rashes Neurological: Normal gait, Normal speech, Normal tone, Normal affect Lymphatics: No axilla or inguinal lymphadenopathy Laboratory Data (last 24 hrs) 03/14/24 03/14/24 03/14/24 16:34 08:10 05:28 WBC 11.10 H Hgb 8.1 L Hct 25.2 L Plt Count 668 H Sodium 124 L 125 L Potassium 4.4 4.1 BUN 32 H 36 H Creatinine 0.47 L 0.49 L Glucose 125 H 100 Phosphorus 2.7 Magnesium 1.9 03/13/24 23:50 WBC Hgb Hct Plt Count Sodium 125 L D Potassium 4.3 BUN 43 H Creatinine 0.58 Glucose 109 H Phosphorus Magnesium - Problems (1) Atrial fibrillation Current Visit: Yes Status: Acute Plan: Patient is currently rate controlled Continue lopressor 25 mg po BID Continue Eliquis 2.5 mg po BID
[2024-03-14] MEDS: FUROSEMIDE 20 MG TABLET PO SCH (17:19)
[2024-03-14] MEDS: UREA 15 GM POWDER PACKET PO SCH (17:41)
--- NOTE | 2024-03-14 19:24 | RAD REPORT ---
EXAM DESCRIPTION: Chest Single View CLINICAL HISTORY: 88 years Female, PICC line inserted COMPARISON: Chest x-ray report from 07/03/2021. The image was unavailable for review. TECHNIQUE: Single portable x-ray view of the chest performed on 03/14/2024 at 2:44 AM FINDINGS: The lungs are well expanded. There is mild nonspecific prominence of the perihilar interst itial markings. There is minimal volume loss in the left lung base which may be due to a combination of fibrosis and/or atelectasis. Inflammatory changes are considered less likely but not entirely excl uded. There is no evidence of a pneumothorax. The cardiac silhouette is normal in size and configuration. There is mild tortuosity and atherosclero tic calcification along the thoracic aorta. The mediastinal contours are normal. No acute osseous abnormality is identified. There are chronic changes of both shoulders. No focal soft tissue abnormalities are seen. Lines and tubes: The right upper extremity PICC line catheter tip terminates in the region of the c avoatrial junction. There are multiple overlying hospital monitor leads. Free air: None identified, IMPRESSION: 1. The tip of the right upper extremity PICC line catheter terminates in the region of the cavoatrial junction. 2. Mild nonspecific prominence of the perihilar interstitial markings. 3. Minimal volume loss in the left lung base which may be due to a combination of fibrosis and/or a telectasis. Electronically signed by: Ashwini Cardoso DO 03/14/2024 03:24 [facility] Due to temporary technical issues with the PACS/Fluency reporting system, reports are being signed by the in house radiologists without review as a courtesy to insure prompt reporting. The interpreting radiologist is fully responsible for the content of the report.
--- NOTE | 2024-03-14 19:53 | PN ---
Date of Progress Note: 03/14/2024 Subjective: Patient transferred to ICU for hyponatremia. Sodium down to 121, improved to 125 today. We will continue salt tablets. Objective: Vital Signs: Temperature 97.6, pulse rate 73, blood pressure 118/69. General: Awake and alert. Frail, and looks chronically ill. Neck: Supple. No elevated JVD. Heart: Regular rate and rhythm. Normal S1, S2. Chest: Clear to auscultation bilaterally. No rales or wheezes. Abdomen: Soft, nontender. Extremities: Lower extremity swelling with hand deformities. Laboratory Data: White count 11.1, hemoglobin 8.1, sodium 125, potassium 4.1, BUN 36, creatinine 0.5 . Cosyntropin test negative for adrenal insufficiency. Urine osmolality 327. Assessment And Plan: 1.Hypervolemic hyponatremia, with borderline blood pressure. Continue salt tablet and urea. Fluid restriction. We will order urine lytes, uric acid. Patient negative for adrenal insufficiency and t he patient had hyponatremia in the hospital setting, could be due to poor solute intake, fluid retent ion, plus/minus SIADH. We will send for SPEP, UPEP, as patient has history of anemia. 2.Hypertension. Currently, blood pressure is borderline. Continue to hold blood pressure medicatio n. 3.Anemia of chronic disease. We will order iron panel, SPEP, and UPEP. 4.Hip fracture, status post surgery. Continue PT, OT. AA/MODL Voice ID: [id number] Report ID: [id number]
[2024-03-14] MEDS: MELATONIN 3 MG TABLET PO SCH (20:20)
[2024-03-15 05:08] LABS: Anion Gap 8.9 mEq/L (5.0-15.0); Potassium 3.9 mEq/L (3.5-5.1)
[2024-03-15 05:25] LABS: Ferritin 216.4 ng/mL (8-388); Thyroid Stimulating Hormone 3.15 uIU/mL (0.358-3.740); Uric Acid 3.8 mg/dL (2.6-6.0)
--- NOTE | 2024-03-15 07:29 | PN ---
Date of Progress Note: 03/14/2024 Subjective: The patient was seen this morning for followup. No new complaints or problems reported by the patient. She was lying in bed, not in any distress. She was in ICU. She was noted to be in atrial fibrillation with rapid ventricular rate this morning with heart rate around and ov ernight in ICU she has gone in and out of atrial fibrillation. Objective: Vital Signs: Reviewed. HEENT: Unremarkable. Lungs: Clear to auscultation. Heart: Sounds normal. Abdomen: Soft. Bowel sounds normal. No guarding, rigidity, tenderness, distention. Extremities: No leg edema. Her right lateral thigh has surgical sutures present. Very well-healed surgical scar. No evidence of any redness, swelling, discharge, or bleeding. Laboratory Data: Sodium 125, potassium 4.1, chloride 93, bicarb 27, BUN 36, creatinine 0.49, glucose 100. White count 11.1, hemoglobin 8.1. Urine osmolality 327. Serum osmolality 270. Impression: 1.Hyponatremia. 2.Atrial fibrillation with rapid ventricular rate. 3.Hypertension. 4.Acute blood loss anemia. 5.Right hip fracture. 6.Urinary tract infection. Plan: We will go ahead and continue Cipro for urinary tract infection. Her culture from rehab floor did not grow any specific bacteria. For her hypertension, she is on amlodipine, which will be disco ntinued and we will start her on metoprolol 25 mg twice a day per order. For her atrial fibrillation , we will go ahead and start metoprolol per order in place of amlodipine and the patient is already o n Eliquis 2.5 mg 2 times a day, which she was taking for DVT prophylaxis after hip surgery and franklin steen will continue that for her atrial fibrillation problem. Echocardiogram was ordered and Cardiolog y consultation was ordered. Physical therapy was ordered. For hyponatremia, we will continue to fol low with supervisor finishing department. Cortisol stimulation test was done today and results came back unremarkable. During the course of day today, nursing staff from ICU informed me that the patient's daughter was t here and was requesting DNR order to be in place, which was confirmed by 2 nurses in ICU and DNR orde r was placed. I will see her tomorrow for followup. HARRIETT/MODL Voice ID: [id number] Report ID: [id number]
--- NOTE | 2024-03-15 12:39 | PN ---
Date of Progress Note: 03/15/2024 Subjective: The patient was admitted to the hospital with acute kidney injury and hyponatremia. Her hyponatremia was secondary to hypervolemic state. Patient was started on urea and salt tablet. The patient's echocardiogram showing elevated filling pressure with normal ejection fraction and grade 1 diastolic dysfunction. Objective: Vital Signs: Blood pressure 108/51, pulse of 72, afebrile. Chest: Clear to auscultation. Heart: S1, S2. Regular. Abdomen: Soft, nontender. Extremity: No edema. Neurologic: Alert. No focality. Laboratory Data: Sodium up to 127, potassium 3.9, bicarb 27, BUN 43, creatinine 0.4, calcium 8.7, uric acid 3.8, iron saturation 9.8, ferritin 216, hemoglobin 8.1. Urine electrolyte, urine sodium of 50. Urine osmolality 325. Current Medications: The patient on, include: 1. Megestrol. 2. Eliquis. 3. Ferrous sulfate. 4. Lasix 20 daily. 5. Urea 15. 6. Salt tablet 20 g t.i.d. 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 I am going to continue salt tablet and Lasix. We will continue urea sodium and we will follow up. 2. Hypertension, currently blood pressure on the lower side. Continue Lasix orally and we will continue salt tablet. Cortisol stimulation test was negative, which ruled out adrenal insufficiency. TSH within normal limit. I am going to continue above treatment and we will follow up. Time spent examining the patient [id number] reviewing the data and clapper and the radiology placing order discussing the case with the patient discussing the case with the steam tank operator including hospitalist and nursing staff more than 55 minutes KENNY Voice ID: [id number] Report ID: [id number] VIGNESH
[2024-03-15 12:43] LABS: UR PROTEIN 35.6 mg/dL (<11.9)
[2024-03-15 12:49] LABS: UR CREAT < 18.0 mg/dL (20-320)
[2024-03-15 15:05] LABS: Anion Gap 10.9 mEq/L (5.0-15.0); Potassium 3.9 mEq/L (3.5-5.1)
--- NOTE | 2024-03-15 17:01 | EKG ---
Test Date: 2024-03-14 Test Time: 07:19:10 Law Instructor: ADELA Villatoro MEASUREMENT RESULTS: Intervals: Rate: 115 PA: 192 QRSD: 68 QT: 316 QTc: 437 [place]: P: 33 PA: 192 QRS: -66 T: 58 INTERPRETIVE STATEMENTS: Sinus tachycardia and premature ventricular complexes or fusion complexes Left axis deviation Low voltage QRS Nonspecific T wave abnormality Abnormal ECG No previous ECG available for comparison Electronically Signed On 03-15-24 16:57:39 CDT by Rolan Peralta
--- NOTE | 2024-03-15 22:57 | PN ---
Date of Progress Note: 03/15/2024 Subjective: The patient was seen this morning for followup. She was lying in bed, not in distress, looking lot better today than yesterday. The patient has remained now in sinus rhythm as of yesterda y evening. Objective: Vital Signs: Reviewed. HEENT: Unremarkable. Lungs: Clear to auscultation. Heart: Sounds normal. Abdomen: Soft. Bowel sounds normal. No guarding, rigidity, tenderness, distention. Extremities: No leg edema. Right lateral thigh exam shows evidence of surgical sutures. Well-heale d surgical scar. No evidence of any redness, gapping, discharge, or bleeding. Laboratory Data: Sodium 127, potassium 3.9, chloride 95, bicarb 27, BUN 43, creatinine 0.48, glucose 91. Echocardiogram has shown ejection fraction 60% to 65% with diastolic dysfunction. Impression: 1.Paroxysmal atrial fibrillation. 2.Acute blood loss anemia. 3.Urinary tract infection. 4.Right hip fracture. 5.Hypertension. 6.Chronic diastolic heart failure. 7.Hyponatremia. Plan: The patient's sodium level has come up and she is hemodynamically stable. There is no need fo r her to stay in ICU, so transfer order was written this morning. See copy of transfer order for mor e details. We will continue to follow with silo man. Continue to follow up with door to door fundraising collector. Her Eliquis 2.5 mg 2 times a day will be continued. We will have Physical Therapy continue to work w ith her. Continue metoprolol for atrial fibrillation as well as hypertension and we will repeat Between Digital d work tomorrow morning. Continue Cipro for urinary tract infection. I will see her tomorrow for followup. HARRIETT/MODL Voice ID: [id number] Report ID: [id number]
[2024-03-16 06:56] LABS: Absolute Basophils 0.1 K/uL (0-0.5); Absolute Eosinophils 0.1 K/uL (0-0.5); Absolute Lymphocytes (CBC) 1.2 K/uL (0.7-4.9); Absolute Monocytes 0.8 K/uL (0.1-1.3); Absolute Neutrophil 4.7 K/uL (1.8-8.0); Eosinophils % 1.8 % (0-4.4); Hematocrit 23.3 % (36.0-45.0); Hemoglobin 7.9 g/dL (12.0-15.0); Lymphocytes % 17.7 % (15.3-44.8); MCH 30.6 pg (27.0-35.0); MCHC 34.1 g/dL (32.0-36.0); MCV 89.9 fL (80-100); MPV 6.1 fL (7.6-11.3); Neutrophils % 68.5 % (41.7-73.7); Platelets 639 thou/uL (152-406); RBC Red Blood Cell Count 2.59 M/uL (3.86-4.86); Red Cell Distribution Width 12.6 % (12.1-15.2)
[2024-03-16 07:07] LABS: Anion Gap 11.8 mEq/L (5.0-15.0); Magnesium 1.9 mg/dL (1.6-2.4); Phosphorus 2.7 mg/dL (2.5-4.9); Potassium 3.8 mEq/L (3.5-5.1)
--- NOTE | 2024-03-16 16:57 | PN ---
Date of Progress Note: 03/16/2024 Subjective: The patient was admitted to the hospital with acute kidney injury and UTI. The patient was also have hyponatremia secondary to hypervolemic state. The patient on urea and salt tablet, has been improved significantly. Physical Examination: Vital Signs: Blood pressure of 133/62, pulse of 88, afebrile. The patient had good urine output of 2500 negative of 2 L. Chest: Clear to auscultation. Heart: S1, S2. Regular. Systolic murmur. Abdomen: Soft, nontender. Extremities: Trace edema. Neuro: Alert, no focality. Laboratory Data: WBC 6.8, hemoglobin 7.9, sodium 135 trending up, potassium 3.8, bicarb 27, BUN 35 trending down, creatinine 0.4, calcium 9.1, phos 2.7, magnesium 1.9, albumin of 2, corrected calcium is 10.7. Serum protein electrophoresis is still pending. PC ratio 1.9. Current Medications: The patient on ciprofloxacin, Eliquis, calcium carbonate, metoprolol, Lasix 20. Tramadol, urea, salt tablet 20 g t.i.d. Assessment And Plan: 1. Hyponatremia secondary to dilutional, on the recovery. Sodium is trending up appropriately. The patient on room air. I am going to continue current treatment and we will monitor. 2. Hypertension, controlled, optimal. Continue current treatment. 3. Elevation in the filling pressure. Currently, the patient on room air. Continue current dose of Lasix. 4. Proteinuria. Serum protein electrophoresis is still pending. The patient 88-year-old. We will consider workup as outpatient. 5. Iron-deficiency anemia. We will start IV iron. 6. Urinary tract infection. Culture still negative. Continue current antibiotic. We will follow up with primary. Time spent examining the patient [id number] reviewing the data and clapper and the radiology placing order discussing the case with the patient discussing the case with the steam tank operator including hospitalist and nursing staff more than 55 minutes KENNY Voice ID: [id number] Report ID: [id number] VIGNESH
[2024-03-17 06:37] LABS: Albumin 2.1 g/dL (3.4-5.0); Anion Gap 8.8 mEq/L (5.0-15.0); Phosphorus 2.7 mg/dL (2.5-4.9); Potassium 3.8 mEq/L (3.5-5.1)
[2024-03-17] MEDS: POLYETHYL GLY 3350 17 GM/DOSE PO ONE (09:02)
[2024-03-17 09:55] VITALS: O2SAT 98
[2024-03-17 12:21] VITALS: BP 117/61; TEMP 97.8
--- NOTE | 2024-03-17 12:51 | PN ---
Date of Progress Note: 03/16/2024 Subjective: The patient was seen this morning for followup. No new complaints or problems reported by patient. She was lying in bed, not in distress. Objective: Vital Signs: Reviewed. HEENT: Unremarkable. Lungs: Clear to auscultation. Heart: Sounds normal. Abdomen: Soft. Bowel sounds normal. No guarding, rigidity, tenderness, distention. Extremities: No leg edema. Laboratory Data: White count 6.8, hemoglobin 7.9, platelets 639. Sodium 135, potassium 3.8, chlorid e 100, bicarb 27, BUN 35, creatinine 0.45, glucose 102. Impression: 1.Hyponatremia. 2.Anemia due to acute blood loss. 3.Hypertension. 4.Paroxysmal atrial fibrillation. Plan: We will go ahead and continue metoprolol and Eliquis per order. Continue current pain medicat ion per order. The patient is on sodium chloride and urea for hyponatremia problem, which has improv ed and we will continue that per vp scientific. Social Service consultation was requested to make oswaldo e that all arrangements gets completed hopefully by tomorrow in order for patient to leave hospital t o go to jail facility. HARRIETT/MODL Voice ID: [id number] Report ID: [id number]
[2024-03-17 15:00] LABS: Abnormal Protein Band 1 REPORT; Albumin, (SPE) 2.2 g/dL (3.8-4.8); Alpha-1-Globulins 0.6 g/dL (0.2-0.3); Alpha-2-Globulins 0.9 g/dL (0.5-0.9); Beta 1 Globulin 0.4 g/dL (0.4-0.6); Gamma Globulins 0.4 g/dL (0.8-1.7); INTERPRETATION REPORT; Total Protein 4.8 g/dL (6.1-8.1)
[2024-03-18 20:52] LABS: Immunofixation Electrophoresis Normal pattern.
== END 2024-03-17 14:25 | DRG 644 ==
LOC: 3RD-ICU 22:13 → 4TH 03-15 16:40
PROVIDERS: ADMIT Internal Medicine; ATTEND Internal Medicine
PROC: 02HV33Z Insertion of Infusion Device into Superior Vena Cava, Percutaneous Approach (ICD-10-PCS; principal; 2024-03-14)
PROC: 0T9B70Z Drainage of Bladder with Drainage Device, Via Natural or Artificial Opening (ICD-10-PCS; 2024-03-15)
DX: E22.2 Syndrome of inappropriate secretion of antidiuretic hormone (principal); D62 Acute posthemorrhagic anemia; N39.0 Urinary tract infection, site not specified; I50.32 Chronic diastolic (congestive) heart failure; N17.9 Acute kidney failure, unspecified; I11.0 Hypertensive heart disease with heart failure; I48.0 Paroxysmal atrial fibrillation; D50.9 Iron deficiency anemia, unspecified; M81.0 Age-related osteoporosis without current pathological fracture; Z66 Do not resuscitate; Z79.01 Long term (current) use of anticoagulants; Z79.899 Other long term (current) drug therapy; Z85.828 Personal history of other malignant neoplasm of skin
CPT/HCPCS: 36415; 71045; 80048; 80069; 82024; 82533; 82570; 82728; 82947; 83540; 83735; 83930; 83935; 84100; 84132; 84156; 84165; 84300; 84443; 84466; 84550; 85025; 86334; 87040; 93005; 93306; 97112; 97116; 97163; 97530; J0834; J2001

== ENCOUNTER 2024-12-20 11:07 | Observation (INO) | payer OTHER ==
--- OUTSIDE RECORDS SUMMARY | 2024-12-20 11:10 | XMS REPORT | Continuity of Care Document ---
Author Name Unknown Address [address] [facility] [address] [place] [address] [facility] [address] [facility] [place] [address] Care Team Providers Care Client Delivery Manager Name Role Phone NIRMAL FINNEGAN Attending Clinician Unavailable RAMONITA FORMAN Attending Clinician Unava ilable [email or web address]_S Attending Clinician Unavaila ble RAMONITA FORMAN Admitting Clinician Unava ilable [email or web address]_S Admitting Clinician Unavaila ble Payers Payer Name Policy Type Policy Number Effective Date Expirati on Date Source GREGORY [id number] 2024 00:00:00 [place]: [place] [id number] 2000 00:00:00 BAUDILIOAHA (MEDICARE SUPPLEMENT) [id number] 2019 00:00:00 Problems Condition Name Condition Details Condition Category Status Onset Date Resolution Date Last Treatment Date Treating Clinician Comments Source Urgent desire to urinate Urgent Desire to Urinate Problem Active 2023-07 00:00: 00 [facility] Lesion of vulva Lesion of Vulva Problem Active 2023-07- 00:00: 00 [facility] Retention of urine Retention of Urine Problem Active 2023-07 2- 00:00: 00 [facility] Atrophic vaginitis Atrophic Vaginitis Problem Active 2022-07 0-25 00:00: 00 [facility] Labial adhesions Labial Adhesions Problem Active 2022-07 0- 00:00: 00 [facility] Dysuria Dysuria Problem Active 2022-07 0-25 00:00: 00 [facility] Hypertensi ve disorder Hypertensi ve Disorder Problem Active 2022-07 0-23 00:00: 00 [facility] 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 Ordering Clinician Indication Dosage Frequency Signature (SIG) Comments Components Source amlodipine 5 mg tablet TAKE 1 AND 1/2 TABLETS DAILY BY MOUTH amlodipine 5 mg tablet TAKE 1 AND 1/2 TABLETS DAILY BY MOUTH No amlodipine 5 mg tablet TAKE 1 AND 1/2 TABLETS DAILY BY MOUTH [facility] estradiol 0.01% (0.1 mg/gram) vaginal cream Insert 0.5 g 3 times a week by vaginal route as directed. estradiol 0.01% (0.1 mg/gram) vaginal cream Insert 0.5 g 3 times a week by vaginal route as directed. No .5g Q56H estradiol 0.01% (0.1 mg/gram) vaginal cream Insert 0.5 g 3 times a week by vaginal route as directed. [facility] gabapentin 300 mg capsule TAKE 1 CAPSULE TWICE A DAY gabapentin 300 mg capsule TAKE 1 CAPSULE TWICE A DAY No gabapentin 300 mg capsule TAKE 1 CAPSULE TWICE A DAY [facility] metoprolol tartrate 25 mg tablet TAKE 1 TABLET EVERY 12 HOURS metoprolol tartrate 25 mg tablet TAKE 1 TABLET EVERY 12 HOURS No metoprolol tartrate 25 mg tablet TAKE 1 TABLET EVERY 12 HOURS [facility] Miralax 17 gram/dose oral powder Take by oral route. Miralax 17 gram/dose oral powder Take by oral route. No Miralax 17 gram/dose oral powder Take by oral route. [facility] Multivitami n 50 Plus Multivitami n 50 Plus No Multivitam in 50 Plus [facility] tamsulosin 0.4 mg capsule TAKE 1 CAPSULE AT BEDTIME tamsulosin 0.4 mg capsule TAKE 1 CAPSULE AT BEDTIME No tamsulosin 0.4 mg capsule TAKE 1 CAPSULE AT BEDTIME [facility] Tylenol 325 mg capsule Take as needed by oral route. Tylenol 325 mg capsule Take as needed by oral route. No Tylenol 325 mg capsule Take as needed by oral route. [facility] Vitamin D Vitamin D No Vitamin D [facility] Vital Signs Vital Name Observation Time Observation Value Comments S ource Body Weight 2024-07-21 00:00:00 98 [lb_av] [facility] BP Diastolic 2024-07-21 00:00:00 75 mm[Hg] [facility] BP Systolic 2024-07-21 00:00:00 120 mm[Hg] [facility] Height 2024-07-21 00:00:00 57 [in_i] [facility] Height 2024-07-05 00:00:00 57 [in_i[facility] BP Diastolic 2024-07-05 00:00:00 69 mm[Hg] [facility] BP Systolic 2024-07-05 00:00:00 142 mm[Hg] [facility] BMI (Body Mass Index) 2024-07-05 00:00:00 21.2 kg/m2 [facility] Body Weight 2024-07-05 00:00:00 98 [lb_av] [facility] BMI (Body Mass Index) 2024-06-28 00:00:00 21.6 kg/m2 [facility] Body Weight 2024-06-28 00:00:00 100 [lb_av] [facility] Height 2024-06-28 00:00:00 57 [in_i] [facility] BP Diastolic 2024-06-28 00:00:00 63 mm[Hg] [facility] BP Systolic 2024-06-28 00:00:00 122 mm[Hg] [facility] Procedures Procedure Date / Time Performed Performing Clinicia n Source Pelvic Examination under Anesthesia 2021-07-06 00:00:00 [facility] Excisional Biopsy of Basal Cell Carcinoma 2019-07-26 00:00:00 [facility] Procedure on Brain 1993-12-01 00:00:00 [facility] - Knee Replacement [facility] Encounters Start Date/Time End Date/Time Encounter Type Admission Type Attending [facility] Facility Care Department Encounter ID Source 2021-12-29 15:09:04 Outpatient [facility] [id number] [facility] 2021-12-26 09:07:02 Outpatient [facility] [id number] [facility] 2021-12-25 14:19:02 Outpatient [facility] [id number] [facility] 2024-07-21 00:00:00 2024-07-21 00:00:00 Pushpa Foster MD: [address], [place] [address] , Ph. Formerly [facility] - [email or web address]_La demetrius [place]* [id number] [facility] 2024-07-05 00:00:00 2024-07-05 00:00:00 Pushpa Foster MD: [address], [place] [address] , Ph. [facility]ly [facility] - GC_GCBZW_Mikki romo Alexi* [id number] [facility] 2024-06-28 00:00:00 2024-06-28 00:00:00 Pushpa Foster MD: [address], [place] [address] , Ph. [facility] - GC_GCBZW_Ma demetrius [place]* [id number] [facility] 2024-03-16 12:30:00 2024-03-16 12:30:00 Outpatient NIRMAL FINNEGAN [facility] [id number] [facility] 2024-02-26 19:31:00 2024-03-03 20:45:[address] [facility] [id number] [facility] 2024-02-27 09:30:00 2024-02-27 09:30:00 Outpatient NIRMAL FINNEGAN [facility] [id number] [facility] 2023-05-19 00:00:00 2023-05-19 00:00:00 Outpatient GC_GCBZW_Ka diyala_S PRIV PRIV [id number] [facility] 2023-05-18 00:00:00 2023-05-18 00:00:00 Outpatient GC_GCBZW_Ka diyala_S PRIV PRIV [id number] [facility]
--- NOTE | 2024-12-20 11:38 | RAD REPORT ---
EXAMINATION: ONE VIEW CHEST XR CLINICAL INDICATION: COUGH TECHNIQUE: Frontal chest projection is submitted. Examination is limited by patient positioning and t echnique. COMPARISON: 03/14/2024 FINDINGS: The lungs are diffusely emphysematous but grossly clear. The heart is upper limit of normal in size. No displaced fractures identified. Aortic atherosclerosis. IMPRESSION: COPD without an acute process suspected.
[2024-12-20] MEDS ORDERED: NA CHLORIDE 0.9% 1,000 ML ONE (11:43)
--- NOTE | 2024-12-20 11:45 | RAD REPORT ---
EXAM: CT brain without contrast HISTORY: TRAUMA COMPARISON: 02/26/2024 TECHNIQUE: Multiple contiguous axial images were obtained and a CT of the brain without contrast. Sag ittal and coronal reformats were performed. One or more of the following dose reduction techniques were used: Automated exposure control, adjust ment of the mA and/or kV according to patient size, and/or iterative reconstruction. FINDINGS: No evidence of hydrocephalus, intracranial hemorrhage, or extra-axial fluid collection. Moderate brain atrophy with moderate periventricular and deep white matter chronic microvascular isc hemic changes present. Posterior fossa postoperative changes. No new finding seen. No evidence of midline shift or areas of brain edema. Posterior fossa craniectomy. The visualized paranasal sinuses and mastoid air cells are essentially c lear. IMPRESSION: No evidence of acute intracranial abnormality.
[2024-12-20 12:03] LABS: Absolute Eosinophils 0.1 K/uL (0-0.5); Absolute Monocytes 0.9 K/uL (0.1-1.3); Absolute Neutrophil 7.2 K/uL (1.8-8.0); Basophils % 0.3 % (0-1.3); Eosinophils % 1.1 % (0-4.4); Hematocrit 36.6 % (36.0-45.0); Hemoglobin 12.6 g/dL (12.0-15.0); Lymphocytes % 19.3 % (15.3-44.8); MCH 31.1 pg (27.0-35.0); MCHC 34.3 g/dL (32.0-36.0); MCV 90.8 fL (80-100); MPV 7.1 fL (7.6-11.3); Monocytes % 8.6 % (3.3-12.3); Neutrophils % 70.7 % (41.7-73.7); Platelets 276 thou/uL (152-406); RBC Red Blood Cell Count 4.03 M/uL (3.86-4.86); Red Cell Distribution Width 12.6 % (12.1-15.2)
[2024-12-20 12:08] LABS: PT Prothrombin Time 11.1 SECONDS (10-13.0); Protime INR 0.97
[2024-12-20 12:23] LABS: ALT/SGPT 21 U/L (13-56); Albumin/Globulin Ratio 0.9 (1.1-1.8); Alkaline Phosphatase 74 U/L (45-117); Anion Gap 9.1 mEq/L (5.0-15.0); BUN Blood Urea Nitrogen 24 mg/dL (7-18); Bicarbonate 30 mEq/L (21-32); Bilirubin Total 0.4 mg/dL (0.2-1.0); Globulin 3.3 g/dL (2.3-3.5); Glomerular Filtration Rate 83 ml/min (=/>90); Glucose Level 107 mg/dL (74-106); Lipase 51 U/L (13-75); Magnesium 2.3 mg/dL (1.6-2.4); NT PRO-BNP 555 pg/mL (<450); Potassium 4.1 mEq/L (3.5-5.1); Protein, Total 6.3 g/dL (6.4-8.2); Sodium Level 135 mEq/L (136-145); Troponin High Sensitivity 45.6 pg/mL (<58.9)
[2024-12-20 12:26] LABS: AST/SGOT < 10 U/L (15-37); Bilirubin Direct < 0.2 mg/dL (0-0.2); Bilirubin Indirect, Calculated 0.2 mg/dL (0.2-0.8)
--- NOTE | 2024-12-20 12:41 | ER ---
Nurse's Notes [facility] Name: Eryn Miguel Age: 89 yrs Sex: Female : 1935 Arrival Date: 12/20/2024 Time: 11:07 Bed 5 Private MD: Diagnosis: Weakness;Syncope Near Presentation: 12/20 11:21 Chief complaint: Patient's son or daughter states: patient had a syncopal episode ap3 Wednesday12/18/24 but did not fall to the ground as family was assisting the patient to the restroom. patient then had a near syncopal episode Wednesday12/19/24 and then again this morning at 0430. All of which occurred with family near-by. Coronavirus screen: At this time, the client does not indicate any symptoms associated with coronavirus-19. Ebola Screen: No symptoms or risks identified at this time. Initial Sepsis Screen: Does the patient meet any 2 criteria? No. Patient's initial sepsis screen is negative. Does the patient have a suspected source of infection? No. Patient's initial sepsis screen is negative. Risk Assessment: Do you want to hurt yourself or someone else? Patient reports no desire to harm self or others. Onset of symptoms was December 19, 2024. Transition of care: patient was not received from another setting of care. 11:21 Method Of Arrival: Wheelchair ap3 11:21 Acuity: BRAXTON 3 ap3 Triage Assessment: 11:24 General: Appears in no apparent distress. Behavior is calm, cooperative, appropriate ap3 for age. Pain: Denies pain. Neuro: Reports a syncopal episode. Neuro: Level of Consciousness is awake, alert, obeys commands, Oriented to person, place, time, situation, Speech is normal. Cardiovascular: Patient's skin is warm and dry. Respiratory: Airway is patent Respiratory effort is even, unlabored, Respiratory pattern is regular, symmetrical. Historical: - Allergies: 11:23 No Known Allergies; ap3 - PMHx: 11:23 Arthritis; Hypertensive disorder; Osteoporosis; brain bleed 1993; ap3 - PSHx: 11:23 left knee surgery; brain sx X's 2 1993; ap3 - Immunization history:: Client reports having NOT received the Covid vaccine. - Infectious Disease History:: Denies. - Social history:: Smoking status: Patient denies any tobacco usage or history of. Screenin:25 Abuse screen: Denies threats or abuse. Nutritional screening: No deficits noted. ap3 Tuberculosis screening: No symptoms or risk factors identified. 14:[address] [facility] ED Fall Risk Assessment (Adult) History of falling in the last 3 months, bp including since admission No falls in past 3 months (0 pts) Confusion or Disorientation No (0 pts) Intoxicated or Sedated No (0 pts) Impaired Gait No (0 pts) Mobility Assist Device Used No (0 pt) Altered Elimination No (0 pt) Score/Fall Risk Level 0 - 2 = Low Risk Oriented to surroundings. Assessment: 11:30 General: SEE TRIAGE NOTE. bp 12:30 Reassessment: No changes from previously documented assessment. Patient is alert, bp oriented x 3, equal unlabored respirations, skin warm/dry/pink. 14:00 Reassessment: REPORT SENT TO [facility]. bp Vital Signs: 11:21 BP 147 / 64; Pulse 56; Resp 17; Temp 97.7; Pulse Ox 96% on R/A; Weight 48.53 kg; ap3 12:30 BP 147 / 64; Pulse 55; Resp 16; Pulse Ox 97% ; bp 14:00 BP 154 / 56; Pulse 53; Resp 16; Pulse Ox 98% ; bp ED Course: 11:10 Patient arrived in ED. im 11:10 Govind Bajwa MD is Attending Physician. [place] 11:13 Matthew Lugo, RN is Primary Nurse. bp 11:23 Triage completed. ap3 11:25 Arm band placed on left wrist. ap3 11:25 Patient has correct armband on for positive identification. Bed in low position. Call ap3 light in reach. Side rails up X2. Adult w/ patient. Client placed on continuous cardiac and pulse oximetry monitoring. NIBP monitoring applied. athletic monitor on. Pulse ox on. NIBP on. 11:32 XRAY Chest (1 view) In Process Unspecified. EDMS 11:42 CT Head Brain wo Cont In Process Unspecified. EDMS 11:53 Initial lab(s) drawn, by me, sent to lab. EKG done, by ED staff, reviewed by Govind Bajwa MD. Inserted saline lock: 22 gauge in left forearm, using aseptic technique. Blood collected. Flushed with 10 mL NS. 12:39 Todd Mireles MD is Hospitalizing Provider. [facility] 14:00 Provided Education on: NA. bp 14:00 No provider procedures requiring assistance completed. Patient admitted, IV remains in bp place. Administered Medications: 11:52 Drug: NS 0.9% IV 500 ml 500 ml IV at 125 ml/hr once Volume: 500 ml; Route: IV; Rate: bp 125 ml/hr; Site: left forearm; 14:04 Follow up: IV Status: Completed infusion bp 11:53 Drug: NS 0.9% IV 500 ml 500 ml IV at 1 bolus once; to be given as a bolus over 30 bp minutes Volume: 500 ml; Route: IV; Rate: 1 bolus; Site: left forearm; 14:04 Follow up: IV Status: Completed infusion bp 14:04 Drug: Aspirin PO Chewable Tablet 81 mg PO once Route: PO; bp 14:05 Follow up: Response: No adverse reaction bp Medication: 14:00 VIS not applicable for this client. bp Outcome: 12:40 Decision to Hospitalize by Provider. [facility] 14:00 Admitted to Med/surg bp 14:00 Condition: stable 14:00 Instructed on the need for admit, 15:46 Patient left the ED. ph Signatures: Dispatcher [employer] EDGovind Logan MD MD cha Hall, Patricia, RN RN ph Matthew Lugo RN RN Prema Benavides RN RN ap3 Nicky Bautista
--- NOTE | 2024-12-20 12:41 | EDPHYS ---
Physician Documentation [facility] Name: Eryn Miguel Age: 89 yrs Sex: Female : 1935 Arrival Date: 12/20/2024 Time: 11:07 Bed 5 Private MD: BERENICE Physician Govind Bajwa HPI: 12/20 12:32 This 89 yrs old Female presents to ER via Wheelchair with complaints of charlotte General Weakness, Near Syncope. 12:32 The patient has experienced near-syncope. Onset: The symptoms/episode began/occurred charlotte just prior to arrival. Duration: This was a single episode, that lasted 20 second(s). Context: the episode(s) was witnessed, by family, daughter, son. Associated injury: The patient did not suffer any apparent associated injury. Associated signs and symptoms: The patient has no apparent associated signs or symptoms. Current symptoms: Currently, the patient is not experiencing any symptoms, the patient feels back to baseline. The patient has experienced similar episodes in the past, a few times. Historical: - Allergies: 11:23 No Known Allergies; ap3 - PMHx: 11:23 Arthritis; Hypertensive disorder; Osteoporosis; brain bleed 1993; ap3 - PSHx: 11:23 left knee surgery; brain sx X's 2 1993; ap3 - Immunization history:: Client reports having NOT received the Covid vaccine. - Infectious Disease History:: Denies. - Social history:: Smoking status: Patient denies any tobacco usage or history of. ROS: 12:33 Constitutional: Negative for fever, chills, and weight loss, Eyes: Negative for injury, charlotte pain, redness, and discharge, ENT: Negative for injury, pain, and discharge, Neck: Negative for injury, pain, and swelling, Cardiovascular: Negative for chest pain, palpitations, and edema, Respiratory: Negative for shortness of breath, cough, wheezing, and pleuritic chest pain, Abdomen/GI: Negative for abdominal pain, nausea, vomiting, diarrhea, and constipation, Back: Negative for injury and pain, : Negative for injury, bleeding, discharge, and swelling, MS/Extremity: Negative for injury and deformity, Skin: Negative for injury, rash, and discoloration, Psych: Negative for depression, anxiety, suicide ideation, homicidal ideation, and hallucinations, Allergy/Immunology: Negative for hives, rash, and allergies, Endocrine: Negative for neck swelling, polydipsia, polyuria, polyphagia, and marked weight changes, Hematologic/Lymphatic: Negative for swollen nodes, abnormal bleeding, and unusual bruising, 12:33 Neuro: Negative for near syncope, weakness, Exam: 12:33 Constitutional: This is a well developed, well nourished patient who is awake, alert, charlotte and in no acute distress. Head/Face: Normocephalic, atraumatic. Eyes: Pupils equal round and reactive to light, extra-ocular motions intact. Lids and lashes normal. Conjunctiva and sclera are non-icteric and not injected. Cornea within normal limits. Periorbital areas with no swelling, redness, or edema. ENT: Nares patent. No nasal discharge, no septal abnormalities noted. Tympanic membranes are normal and external auditory canals are clear. Oropharynx with no redness, swelling, or masses, exudates, or evidence of obstruction, uvula midline. Mucous membranes moist. Neck: Trachea midline, no thyromegaly or masses palpated, and no cervical lymphadenopathy. Supple, full range of motion without nuchal rigidity, or vertebral point tenderness. No Meningismus. Chest/axilla: Normal chest wall appearance and motion. Nontender with no deformity. No lesions are appreciated. Cardiovascular: Regular rate and rhythm with a normal S1 and S2. No gallops, murmurs, or rubs. Normal PMI, no JVD. No pulse deficits. Respiratory: Lungs have equal breath sounds bilaterally, clear to auscultation and percussion. No rales, rhonchi or wheezes noted. No increased work of breathing, no retractions or nasal flaring. Abdomen/GI: Soft, non-tender, with normal bowel sounds. No distension or tympany. No guarding or rebound. No evidence of tenderness throughout. Back: No spinal tenderness. No costovertebral tenderness. Full range of motion. Skin: Warm, dry with normal turgor. Normal color with no rashes, no lesions, and no evidence of cellulitis. MS/ Extremity: Pulses equal, no cyanosis. Neurovascular intact. Full, normal range of motion., bilateral aka Neuro: Awake and alert, GCS 15, oriented to person, place, time, and situation. Cranial nerves II-XII grossly intact. Motor strength 5/5 in all extremities. Sensory grossly intact. Cerebellar exam normal. Normal gait. Psych: Awake, alert, with orientation to person, place and time. Behavior, mood, and affect are within normal limits. 12:33 ECG was reviewed by the Attending Physician. Vital Signs: 11:21 BP 147 / 64; Pulse 56; Resp 17; Temp 97.7; Pulse Ox 96% on R/A; Weight 48.53 kg; ap3 12:30 BP 147 / 64; Pulse 55; Resp 16; Pulse Ox 97% ; bp 14:00 BP 154 / 56; Pulse 53; Resp 16; Pulse Ox 98% ; bp MDM: 11:10 Medical Screening Exam initiated charlotte 12:35 Differential Diagnosis: aortic aneurysm, cardiac arrhythmia, cerebrovascular accident, charlotte emotional response, idiopathic syncope, pseudo seizure, seizure, vasovagal episode. Data reviewed: vital signs, nurses notes, lab test result(s), EKG, radiologic studies. Consideration of Admission/Observation Escalation of care including admission/observation considered. I considered the following discharge prescriptions or medication management in the emergency department Medications were administered in the Emergency Department. See MAR. Independent interpretation of the following test(s) in the Emergency Department EKG: See my EKG interpretation above. Test considered but Not performed: MRI: no mri. Historians other than the Patient: Family Member: son and daughter. Care significantly affected by the following chronic conditions: Hypertension. 12/20 11:12 Order name: Basic Metabolic Panel; Complete Time: 12: [facility] 12/20 11:12 Order name: CBC with Diff; Complete Time: 12: [facility] 12/20 11:12 Order name: LFT's; Complete Time: 12:12/20 11:12 Order name: Magnesium; Complete Time: 12: [facility] 12/20 11:12 Order name: NT PRO-BNP; Complete Time: 12: [facility] 12/20 11:12 Order name: PT-INR; Complete Time: 12: [facility] 12/20 11:12 Order name: Troponin HS; Complete Time: 12: [facility] 12/20 11:12 Order name: Lipase; Complete Time: 12: [facility] 12/20 11:12 Order name: UA Rfx Jose Luis Cult if indicated; Complete Time: 15:30 [facility] 12/20 11:12 Order name: XRAY Chest (1 view); Complete Time: 12: [facility] 12/20 11:12 Order name: CT Head Brain wo Cont; Complete Time: 12:27 [facility] 12/20 11:58 Order name: US Carotid Artery Bilateral [facility] 12/20 14:13 Order name: US; Complete Time: 15:30 EDMS 12/20 11:12 Order name: Cardiac monitoring; Complete Time: 11:32 [facility] 12/20 11:12 Order name: EKG - Nurse/Tech; Complete Time: 11:32 [facility] 12/20 11:12 Order name: IV Saline Lock; Complete Time: 11:53 [facility] 12/20 11:12 Order name: Labs collected and sent; Complete Time: 11:53 [facility] 12/20 11:12 Order name: O2 Per Protocol; Complete Time: 11: [facility] 12/20 11:12 Order name: O2 Sat Monitoring; Complete Time: : [facility] EC:33 Rate is 54 beats/min. Rhythm is regular. QRS [place] is Normal. CO interval is normal. QRS [place] interval is normal. QT interval is normal. No Q waves. T waves are Normal. T waves are Peaked. No ST changes noted. Clinical impression: Sinus bradycardia and No evidence of ischemia. Interpreted by me. Reviewed by me. Administered Medications: 11:52 Drug: NS 0.9% IV 500 ml 500 ml IV at 125 ml/hr once Volume: 500 ml; Route: IV; Rate: bp 125 ml/hr; Site: left forearm; 14:04 Follow up: IV Status: Completed infusion bp 11:53 Drug: NS 0.9% IV 500 ml 500 ml IV at 1 bolus once; to be given as a bolus over 30 bp minutes Volume: 500 ml; Route: IV; Rate: 1 bolus; Site: left forearm; 14:04 Follow up: IV Status: Completed infusion bp 14:04 Drug: Aspirin PO Chewable Tablet 81 mg PO once Route: PO; bp 14:05 Follow up: Response: No adverse reaction bp Disposition Summary: 12/20/24 12:40 Hospitalization Ordered Notes: Hospitalization Status: Observation [place] Provider: Todd Mireles cha Location: Telemetry/MedSurg (observation) [place]lotte Condition: Fair [place]lotte Problem: new charlotte Symptoms: have improved charlotte Bed/Room Type: Standard [facility] Room Assignment: 411(12/20/24 13:30) bd Diagnosis - Weakness charlotte - Syncope Near charlotte Forms: - Medication Reconciliation Form [place]lotte - SBAR form charlotte - Leadership Thank You Letter [facility] Signatures: Dispatcher [employer] EDMS DidiJuliana Govind Garcia MD MD cha Roszak, Talha, PA PA jr8 Matthew Lugo, ADELA RN bp Prema Ramirez RN RN ap3 Corrections: (The following items were deleted from the chart) 11:13 11:13 BASIC METABOLIC PANEL+C.LAB.BRZ ordered. EDMS EDMS 11:13 11:13 CBC+H.LAB.BRZ ordered. EDMS EDMS 11:13 11:13 HEPATIC FUNCTION+C.LAB.BRZ ordered. EDMS EDMS 11:13 11:13 MAGNESIUM+C.LAB.BRZ ordered. EDMS EDMS 11:13 11:13 PROBNP+C.LAB.BRZ ordered. EDMS EDMS 11:13 11:13 PROTIME (+INR)+COAG.LAB.BRZ ordered. EDMS EDMS 11:13 11:13 Troponin High Sensitivity+C.LAB.BRZ ordered. EDMS EDMS 11:13 11:13 LIPASE+C.LAB.BRZ ordered. EDMS EDMS 11:13 11:13 UA Rfx Jose Luis Cult if indicated+U.LAB.BRZ ordered. EDMS EDMS 11:13 11:13 Chest Single View+RAD.RAD.BRZ ordered. EDMS EDMS 11:13 11:13 Head Brain Wo Cont+CT.RAD.BRZ ordered. EDMS EDMS 13:30 12:40 [facility]
--- NOTE | 2024-12-20 14:13 | RAD REPORT ---
EXAMINATION: US CAROTID DUPLEX CLINICAL INDICATION: , 89 years old. DIZZINESS. TECHNIQUE: Real-time grayscale, color flow and spectral Doppler sonographic images were obtained of t extracranial carotid system using a linear transducer. [id number]. COMPARISON: No prior exam. FINDINGS: RIGHT: Common carotid artery: 40 cm/s Internal carotid artery: 39 cm/s External carotid artery: 54 cm/s Right ICA/CCA ratio: 1.0 Plaque Mild Vertebral artery Antegrade LEFT: Common carotid artery: 53 cm/s Internal carotid artery: 51 cm/s External carotid artery: 41 cm/s lEFT ICA/CCA ratio: 1.0 Plaque Mild Vertebral artery Antegrade IMPRESSION: No hemodynamically significant stenosis (greater than 50%) within the extracranial internal carotid a [facility].
[2024-12-20 14:53] LABS: Specific Gravity 1.008 (1.005-1.030); Sqamous Epithelial None Seen /HPF (None Seen); Urine Bacteria <20 /HPF (<20); Urine Bilirubin NEGATIVE (Negative); Urine Blood Negative (Negative); Urine Clarity Turbid (Clear); Urine Color Light-Yellow (Yellow); Urine Culture Reflex Order REFLEXED; Urine Glucose NEGATIVE (Negative); Urine Ketones NEGATIVE (Negative); Urine Microscopic Reflex YN ORDER UMIC; Urine Mucus Slight /HPF (None Seen); Urine Nitrite 1+ (Negative); Urine Protein NEGATIVE (Negative); Urine RBC <5 /HPF (None Seen); Urine Urobilinogen Normal (Normal); Urine WBC 20-50 /HPF (<5); Urine pH 6.5 (5.0-7.0)
[2024-12-20 15:54] VITALS: BMI 20.9
[2024-12-20] MEDS ORDERED: ACETAMINOPHEN 500 MG TAB PO PRN (16:23)
[2024-12-20] MEDS ORDERED: ONDANSETRON 4 MG/2 ML VIAL IV PRN (16:23)
[2024-12-20] MEDS ORDERED: ACETAMINOPHEN 325 MG TABLET PO PRN (16:28)
[2024-12-20] MEDS: NA CHLORIDE 0.9% 1,000 ML IV SCH (18:40)
[2024-12-20] MEDS: PNEUMOCOCCAL VACCINE 0.5 ML IMVAC ONE (18:41)
--- NOTE | 2024-12-20 21:12 | HP ---
Date of Admission: 12/20/2024 Chief Complaint: Fainting. History Of Present Illness: This is an 89-year-old female patient who lives at home with her vivi r was brought into emergency room with above-mentioned of fainting episodes. The patient's daughter called office today and she was advised to bring the patient to the emergency room and after patient was evaluated in the emergency room, the patient was admitted to the hospital. I saw her this yang altman Daughter was at bedside. The patient's daughter reported that as of Wednesday of this week, she sta rted to have this fainting episode. Wednesday night when she wanted to go to the bathroom, her son-in-l aw took her to the bathroom and as she was approaching bathroom, she started to have fainting type of feeling and the patient's son-in-law placed her quickly on the commode and at that time she became u nresponsive for maybe 30-60 seconds and daughter kept on calling her. She was not answering and then she started to answer. During this time, daughter noted that the patient was having excess amount o f sweating. Prior to this episode, the patient had no chest pain or shortness of breath. No nausea, vomiting, diarrhea, or any blood in urine or stool. After this episode, the patient was assisted in a wheelchair to get back to her bed and after a while she went to sleep and next day which is on Wed that is yesterday, she had another episode yesterday evening when she was going to the bathroom again with assistance, she had similar feeling of fainting type of episode and a brief period of avinash ting type of feeling for maybe 30-60 seconds and spontaneously recovered. There was no fall. Last e pisode was this morning when she was standing at the sink brushing her teeth and all of a sudden she had such episode. No palpitation, chest pain, or shortness of breath. Her workup was done in the em ergency room and she was admitted to the hospital today. When I saw her she was lying in bed with no specific complaints. Physical Examination: Vital Signs: Temperature 97.7, pulse 53, respiratory rate 16, blood pressure 154/56, oxygen saturati on 96% on room air. Her orthostatic vital signs were checked today shows supine blood pressure 200/6 4, sitting blood pressure 194/91, standing blood pressure 137/66. General: Awake, alert, oriented, not in distress. HEENT: Head atraumatic, normocephalic. Conjunctivae nonerythematous. Sclerae white. Mouth, no thr ush or edema noted. Ears/Nose, no mass, lesion, discharge noted. Neck: Supple. No JVD, lymph nodes, bruit, thyromegaly noted. Lungs: Bilateral good equal air entry. Clear to auscultation. No rhonchi. No rales. Heart: Normal heart sounds, no murmur or gallop. Abdomen: Soft, bowel sounds normal. No guarding, rigidity, tenderness, mass, hepatosplenomegaly, dis tention, or bruit noted. Extremities: Her right upper extremity is underdeveloped and this is chronic finding. Skin: No rash, ulcer, cellulitis. Lymphatics: No lymph node enlargement in neck, supraclavicular, infraclavicular region. Neuro: No focal neurological deficit. Chest: Unremarkable. External Genitalia: Deferred. Rectal: Deferred. Laboratory Data: WBC 10.2, hemoglobin 12.6, platelets 276. Sodium 135, potassium 4.1, chloride 100, bicarb 30, BUN 24, creatinine 0.67. Glucose 107. Liver function tests unremarkable. Troponin 45.6 on the first set and 40.7 on the second set. ProBNP 555. Lipase 51. Urinalysis; urine appearance turbid, 1+ nitrite, 500 leukocyte esterase, less than 5 RBC, 20-50 WBC, less than 20 bacteria. Carot id Doppler shows no evidence of hemodynamically significant stenotic lesion. Chest x-ray, no acute c ardiopulmonary changes. CAT scan of the brain, no acute intracranial changes. Impression: 1. Syncope. 2. Urinary tract infection. 3. Orthostatic hypotension. 4. Hypertension. 5. Hyperlipidemia. 6. Osteoarthritis, multiple sites. Plan: We will go ahead and admit patient to hospital for further evaluation and management of this p melissa. The patient will be admitted to telemetry unit. The patient is appropriate for observation. The patient has urinary tract infection and we will go ahead and give empiric antibiotic and follow up on urine culture result. Her syncope is likely due to orthostatic hypotension as I was concerned about on basis of her history and today she did have significant drop in her blood pressure from sup ine to standing position. We will recheck her orthostatic vitals tomorrow morning and then make furt her decision. At home she takes metoprolol for hypertension. We will go ahead and monitor her pulse and blood pressure. Monitor telemetry for any kind of significant bradycardia problem and then deci de about any specific antihypertensive medication. Total time spent was 80 minutes including review of last office visit record, communication with the emergency room physician, review of emergency room visit record, review of last hospital admission vi sit record from 03/13/2024 and performing today's evaluation and management. I will see her tomorrow for followup. HARRIETT/STARLA Voice ID: [id number]
[2024-12-20 21:15] VITALS: O2SAT 95
[2024-12-20] MEDS: CEFTRIAXONE 1,000 MG in NA CHLORIDE 0.9% 50 ML IVPB SCH (23:30)
[2024-12-21] MEDS: METOPROLOL XL 50 MG TAB PO ONE (00:04)
[2024-12-21 04:48] LABS: Absolute Eosinophils 0.1 K/uL (0-0.5); Absolute Lymphocytes (CBC) 1.7 K/uL (0.7-4.9); Absolute Monocytes 0.9 K/uL (0.1-1.3); Absolute Neutrophil 6.4 K/uL (1.8-8.0); Basophils % 0.1 % (0-1.3); Eosinophils % 1.3 % (0-4.4); Hematocrit 37.8 % (36.0-45.0); Hemoglobin 12.8 g/dL (12.0-15.0); Lymphocytes % 18.9 % (15.3-44.8); MCH 30.9 pg (27.0-35.0); MCHC 33.9 g/dL (32.0-36.0); MPV 7.1 fL (7.6-11.3); Monocytes % 9.9 % (3.3-12.3); Neutrophils % 69.8 % (41.7-73.7); Platelets 267 thou/uL (152-406); RBC Red Blood Cell Count 4.15 M/uL (3.86-4.86); Red Cell Distribution Width 12.8 % (12.1-15.2)
[2024-12-21 04:58] LABS: Anion Gap 7.5 mEq/L (5.0-15.0); Potassium 3.5 mEq/L (3.5-5.1)
[2024-12-21 05:01] VITALS: TEMP 98.6
[2024-12-21] MEDS: AMLODIPINE 5 MG TAB PO ONE (07:52)
[2024-12-21] MEDS: ASPIRIN EC 81 MG TAB PO SCH (07:52)
[2024-12-21 07:53] VITALS: BP 185/78
[2024-12-21] MEDS: CIPROFLOXACIN HCL 250 MG TAB PO ONE (08:38)
[2024-12-21] MEDS ORDERED: ACETAMINOPHEN 325 MG TABLET PO SCH ×2 (09:00)
[2024-12-21] MEDS ORDERED: VITAMIN D 1000 UNIT TAB PO SCH (09:00)
[2024-12-21] MEDS ORDERED: GABAPENTIN 300 MG CAP PO SCH (09:00)
[2024-12-21] MEDS ORDERED: CRANBERRY FRUIT EXTRACT 425 MG CAPSULE PO SCH (09:00)
[2024-12-21] MEDS ORDERED: METOPROLOL XL 25 MG TAB PO SCH (09:00)
--- NOTE | 2024-12-21 14:30 | ECHO ---
HEIGHT: 5 ft 0 in WEIGHT: 107 lb 0 oz DATE OF STUDY: 12/21/[address]: Todd Mireles MD 2-DIMENSIONAL: YES M.MODE: YES DOPPLER: YES COLOR FLOW: YES TDS: YES PORTABLE: YES DEFINITY: NO BUBBLE STUDY: NO DIAGNOSIS: SYNCOPE CARDIAC HISTORY: CATHERIZATION: NO SURGERY: NO PROSTHETIC VALVE: NO PACEMAKER: NO MEASUREMENTS (cm) DIASTOLIC (NORMALS) SYSTOLIC (NORMALS) IVSd 0.9 (0.6-1.2) LA Diam 2.3 (1.9-4.0) LVEF 55-60% LVIDd 3.1 (3.5-5.7) LVIDs 2.3 (2.0-3.5) %FS 26% LVPWd 1.1 (0.6-1.2) Ao Diam 2.0 (2.0-3.7) 2 DIMENSIONAL ASSESSMENT: RIGHT ATRIUM: NORMAL LEFT ATRIUM: NORMAL RIGHT VENTRICLE: NORMAL LEFT VENTRICLE: NORMAL TRICUSPID VALVE: TRACE OF TRICUSPID REGURGITATION MITRAL VALVE: NORMAL PULMONIC VALVE: NORMAL AORTIC VALVE: MILD AORTIC REGURGITATION PERICARDIAL EFFUSION: NONE AORTIC ROOT: NORMAL LEFT VENTRICULAR WALL MOTION: NORMAL. DOPPLER/COLOR FLOW: GRADE I DIASTOLIC DYSFUNCTION. COMMENTS: 1. NORMAL LEFT VENTRICULAR SYSTOLIC FUNCTION, EJECTION FRACTION 55-60%, NORMAL WALL MOTION. 2. NORMAL DIASTOLIC FUNCTION. 3. MILD AORTIC REGURGITATION TECHNOLOGIST: TARYN MCKEON
[2024-12-21] MEDS ORDERED: TAMSULOSIN 0.4 MG SR CAP PO SCH (21:00)
== END 2024-12-21 11:50 | disposition home or self-care (01) ==
LOC: ER 11:07 → ERHOLD 12:42 → 4TH 14:04
PROVIDERS: ADMIT Internal Medicine; ATTEND Internal Medicine
DX: I95.1 Orthostatic hypotension (principal); N39.0 Urinary tract infection, site not specified; I10 Essential (primary) hypertension; E78.5 Hyperlipidemia, unspecified; M19.90 Unspecified osteoarthritis, unspecified site; Z23 Encounter for immunization
CPT/HCPCS: 96361; 93306; 87088; 85025 ×2; 81001; 87086; 80048 ×2; 36415; 83735; 85610; 80076; 84484 ×2; 83690; 83880; 70450; 71045; 90471; 93880; 90732; 96360; 99285; J7030 ×3; J0696 ×2; G0378 ×3; 87077; 87186; 93005